=== PATIENT | female | born 1940 | race Caucasian/White ===

== ENCOUNTER → 2016-12-04 | Outpatient (CLI) | payer OTHER, MEDICARE ==
[~2016-12-04] MED LIST: ALBU18002; AMLO-114 PO; ASPI81TA28 PO; B-COTAB18 PO; EFF75 PO; GABA-113 PO; LISI-729 PO; METO50TA16 PO; OMEP40CA PO; PRVC40 PO
[2016-12-04 13:38] LABS: BLOOD UREA NITROGEN 23 mg/dl (7-18); BUN/CREATININE RATIO 23.9 (10-20); CARBON DIOXIDE 30 mmol/L (21-32); CHLORIDE 103 mmol/L (98-107); CREATININE 0.96 mg/dl (0.60-1.20); GLUCOSE 136 mg/dl (70-99); POTASSIUM 4.1 mmol/L (3.5-5.1); SODIUM 139 mmol/L (136-145)
[2016-12-04 13:41] LABS: CALCIUM 9.7 mg/dl (8.5-10.1)
== END | disposition home or self-care (01) ==
LOC: C.LABMFLN 10:48
PROVIDERS: ATTEND Internal Medicine Cardiovascular Disease
DX: I10 Essential (primary) hypertension (principal); I25.10 Atherosclerotic heart disease of native coronary artery without angina pectoris

== ENCOUNTER → 2017-01-05 | Outpatient (CLI) | payer OTHER, MEDICARE ==
[2017-01-05 13:58] LABS: ESTIMATED AVERAGE GLUCOSE 134 mg/dl; HA1C FLAG Normal (Normal)
== END | disposition home or self-care (01) ==
LOC: C.LABMFLN 10:14
PROVIDERS: ATTEND Family Medicine
DX: R73.01 Impaired fasting glucose (principal)

== ENCOUNTER 2020-05-27 09:49 | Inpatient (IN) ==
--- NOTE | 2020-05-06 11:46 | PAT Medication Instructions ---
Medication Instructions Date of Service May 06, 2020 Home Medications Medication Instructions Recorded venlafaxine 75 mg tablet 75 mg PO BID #180 tab 03/04/19 metoprolol tartrate 50 mg tablet 50 mg PO BID #180 tab 09/18/19 gabapentin 400 mg capsule 400 mg PO TID 90 Days #270 cap 04/02/20 nitrofurantoin 100 mg PO BID 7 Days #14 cap 04/19/20 monohydrate/macrocrystals 100 mg capsule venlafaxine 75 mg tablet 75 mg PO BID B-complex with vitamin C 1 cap PO QAM meclizine 25 mg tablet 25 mg PO TID PRN nitroglycerin 0.4 mg sublingual tablet 0.4 mg SL Q5M PRN metoprolol tartrate 50 mg tablet 50 mg PO BID gabapentin 400 mg capsule 400 mg PO TID nitrofurantoin monohydrate/macrocrystals 100 mg capsule 100 mg PO BID amlodipine 2.5 mg PO PM aspirin [Aspir-81] 81 mg PO QAM hydrochlorothiazide 12.5 mg PO PM isosorbide mononitrate 60 mg PO PM lisinopril 40 mg PO PM omeprazole 40 mg PO QAM Continue as directed nitroglycerin 0.4 mg sublingual tablet 0.4 mg SL Q5M PRN (if needed) ASK your prescriber and surgeon aspirin [Aspir-81] 81 mg PO QAM DO NOT take the morning of surgery B-complex with vitamin C 1 cap PO QAM Take morning of surgery With a small sip of water, OTHERWISE NOTHING TO EAT OR DRINK AFTER MIDNIGHT: venlafaxine 75 mg tablet 75 mg PO BID meclizine 25 mg tablet 25 mg PO TID PRN (if needed) metoprolol tartrate 50 mg tablet 50 mg PO BID gabapentin 400 mg capsule 400 mg PO TID nitrofurantoin monohydrate/macrocrystals 100 mg capsule 100 mg PO BID omeprazole 40 mg PO QAM Take evening before surgery venlafaxine 75 mg tablet 75 mg PO BID meclizine 25 mg tablet 25 mg PO TID PRN (if needed) metoprolol tartrate 50 mg tablet 50 mg PO BID gabapentin 400 mg capsule 400 mg PO TID nitrofurantoin monohydrate/macrocrystals 100 mg capsule 100 mg PO BID amlodipine 2.5 mg PO PM hydrochlorothiazide 12.5 mg PO PM isosorbide mononitrate 60 mg PO PM lisinopril 40 mg PO PM Other Notes If you have any questions please call us at [phone] or [phone] or [phone] or [phone]
--- NOTE | 2020-05-07 13:11 | Anesthesiology Consultation ---
Date of Service May 07, 2020 Assessment & Plan (1) Encounter for pre-operative examination: - Awaiting surgeon-ordered PCP clearance (05/13; [facility]) and cardiology clearance (05/17; [facility]). - Per assessment on 05/07: Travel screen negative. No known COVID-19 positive contacts or current COVID-19 related symptoms. Surgeon arranging preop COVID testing. Awaiting results. - Possible difficult intubation: d/t decreased cervical extension. Chart Review Chart Review: Patient seen in Pre Admission Testing Teaching & Discussion Pre-Anesthesia Teaching/Discussion Notes: Instructed NPO after midnight before surgery,except medications with 15 cc of water. Medication instructions provided according to the PAT guidelines. History Surgery Operation Date: 05/27/20 13:10 Proposed Procedures p Left Reverse Total Shoulder Arthroplasty - Devonte José MD Height/Weight Height: 5 ft 0.5 in Weight: 69 kg Allergies Allergy/AdvReac Type Severity Reaction Status Date / Time atorvastatin Allergy Unknown leg Verified 05/07/20 13:05 weakness chlorpheniramine Allergy Unknown Antihistamines Verified 05/07/20 15:28 reaction- "fogginess" diphenhydramine Allergy Unknown Antihistamines Verified 05/07/20 15:28 reaction- "fogginess" fenofibrate Allergy Unknown leg Verified 05/07/20 13:05 weakness loratadine Allergy Unknown Antihistamines Verified 05/07/20 15:28 reaction- "fogginess" Medications Home Medications Medication Instructions Recorded Confirmed Last Taken venlafaxine 75 mg tablet 75 mg PO BID #180 tab 03/04/19 05/06/20 Unknown B-complex with vitamin C 1 cap PO QAM 03/21/19 05/06/20 Unknown meclizine 25 mg tablet 25 mg PO TID PRN #30 tab 03/21/19 05/06/20 Unknown nitroglycerin 0.4 mg sublingual 0.4 mg SL Q5M PRN #25 tab 03/21/19 05/06/20 Unknown tablet metoprolol tartrate 50 mg tablet 50 mg PO BID #180 tab 09/18/19 05/06/20 Unknown gabapentin 400 mg capsule 400 mg PO TID 90 Days #270 cap 04/02/20 05/06/20 Unknown nitrofurantoin 100 mg PO BID 7 Days #14 cap 04/19/20 05/06/20 Unknown monohydrate/macrocrystals 100 mg capsule amlodipine 2.5 mg PO PM 05/06/20 05/06/20 Unknown aspirin [Aspir-81] 81 mg PO QAM 05/06/20 05/06/20 Unknown hydrochlorothiazide 12.5 mg PO PM 05/06/20 05/06/20 Unknown isosorbide mononitrate 60 mg PO PM 05/06/20 05/06/20 Unknown lisinopril 40 mg PO PM 05/06/20 05/06/20 Unknown omeprazole 40 mg PO QAM 05/06/20 05/06/20 Unknown Past Medical History Medical History Anxiety Cowan's esophagus CAD (coronary artery disease) stent x1 (1998), follows with [facility] cardiology Carpal tunnel syndrome left Depression Dyslipidemia Gait abnormality poor balance Gastro-esophageal reflux disease without esophagitis controlled History of ovarian cancer s/p chemo (2003), subsequent oophorectomy Hypertension Kidney stones x3 Lumbar canal stenosis Osteoarthritis Peripheral neuropathy Prediabetes Sleep apnea CPAP Urinary incontinence Exercise / Class Metabolic Activity III < 4 Walking/Shop/Light housework Past Family History Family History Brother Cancer Hypertension Father Cancer Mother Diabetes Coronary heart disease Hypertension Myocardial infarction Sister Stroke Denies family history of Ovarian cancer Prostate cancer Breast cancer Colorectal cancer Past Surgical History Surgical History H/O colonoscopy H/O dilation and curettage History of appendectomy History of bunionectomy left History of carpal tunnel release right History of esophagogastroduodenoscopy (EGD) History of foot surgery left - hammer toes History of tooth extraction Hx of salpingo-oophorectomy, bilateral S/P cardiac cath 1998- stent x 2015- no stents S/P hysterectomy Past Anesthesia History No Hx of Anesthesia Complications and No Family Hx of Anesthesia Complications History of PONV No Hx of PONV and No Hx of Motion Sickness Social History Smoking Status: Never smoker Do You Dip or Chew Tobacco: No Hx Alcohol Use: No Hx Substance Use: No substance use type: does not use Review of Systems Reflux controlled. Patient denies chest pain, shortness of breath, fever, chills, cough, wheezing, palpitations. Physical Exam Vital Signs VITALS BP 144/78 P 56 TEMP 98.1 SP02 97%RA RESP 16 PHYSICAL Decreased cervical extension. Full TMJ range of motion. TMD 3 finger breaths Mallampati Score 1 Dentition: upper front left tooth/molars missing Lungs: clear throughout to auscultation Cardiac: regular rate and rhythm, I/ systolic murmur Spine: normal Carotid arteries: negative bruit Extremities: no edema Testing Laboratory Results 05/07/20 13:55 05/07/20 13:55 PT 10.7 Seconds (9.0-12.0) 05/07/20 13:55 INR 1.0 (0.9-1.1) 05/07/20 13:55 APTT 26.0 Seconds (21.0-31.0) 05/07/20 13:55 Hemoglobin A1c 6.4 % (4.5-5.6) H 05/07/20 13:55 Urine Color Yellow 05/07/20 13:55 Urine Appearance Clear (Clear) 05/07/20 13:55 Urine pH 5.0 (4.5-7.5) 05/07/20 13:55 Ur Specific [place] 1.013 (1.000-1.030) 05/07/20 13:55 Urine Protein Negative (Negative) 05/07/20 13:55 Urine Glucose (UA) Negative (Negative) 05/07/20 13:55 Urine Ketones Negative (Negative) 05/07/20 13:55 Urine Nitrite Negative (Negative) 05/07/20 13:55 Ur Leukocyte Esterase Negative (Negative) 05/07/20 13:55 Blood Type A Positive 05/07/20 13:55 Antibody Screen NEGATIVE 05/07/20 13:55 Electrocardiogram Date: 06/04/19 ST at 101bpm. LAFB. LVH with secondary repolarization abnormality. Chest X-Ray Date: 05/07/20 FINDINGS: Lung volumes are normal. Lungs are clear. There is no pneumothorax or pleural effusion. Cardiac size is normal. Mediastinal contours are normal. There is no evidence for pulmonary edema. Incidental note is made of left upper quadrant surgical clips. IMPRESSION: No acute cardiopulmonary findings Cardiac Catheterization Date: 04/14/16 Moderate mid left circumflex stenosis. Conclusion: FFR of moderate mid left circumflex stenosis not physiologically significant. Plan: Medical management of CAD. Follow up and management of CAD by Dr. Neri Bone.
--- NOTE | 2020-05-07 14:30 | XRay Report ---
XR chest Pre-admission PA/Lat CLINICAL HISTORY: Preoperative evaluation. COMPARISON STUDY: No previous studies for comparison. FINDINGS: Lung volumes are normal. Lungs are clear. There is no pneumothorax or pleural effusion. Car diac size is normal. Mediastinal contours are normal. There is no evidence for pulmonary edema. Incid ental note is made of left upper quadrant surgical clips. IMPRESSION: No acute cardiopulmonary findings. ACT 112: Negative or not required by law. Electronically signed by: Usama Naranjo M.D. 05/07/2020 2:28 PM
[2020-05-07 14:39] LABS: Basophils # (auto) 0.01 K/uL (0-0.2); Basophils % (auto) 0.2 %; Eosinophils # (auto) 0.16 K/uL (0-0.5); Eosinophils % (auto) 3.2 %; Hematocrit (blood only) 39.3 % (37-47); Hemoglobin 12.8 g/dL (12.0-16.0); Immature Granulocytes # (auto) 0.01 K/uL (0.00-0.02); Immature Granulocytes % (auto) 0.2 %; Lymphocytes # (auto) 1.76 K/uL (1.2-3.4); Lymphocytes % (auto) 34.7 %; Mean Corpuscular Hemoglobin 30.8 pg (25-34); Mean Corpuscular Hgb Conc 32.6 g/dL (32-36); Mean Corpuscular Volume 94.7 fL (80-100); Monocytes # (auto) 0.38 K/uL (0.11-0.59); Monocytes % (auto) 7.5 %; Neutrophils # (auto) 2.75 K/uL (1.4-6.5); Neutrophils % (auto) 54.2 %; Platelet Count 278 K/uL (130-400); Red Blood Count 4.15 M/uL (4.2-5.4); White Blood Count 5.07 K/uL (4.8-10.8)
[2020-05-07 14:43] LABS: Appearance Urine Clear (Clear); Bilirubin Urine Negative (Negative); Blood Urine Negative (Negative); Color Urine Yellow; Glucose Urine UA Negative (Negative); Ketones Urine Negative (Negative); Leukocyte Esterase Urine Negative (Negative); Nitrite Urine Negative (Negative); Protein Urine Negative (Negative); Specific Gravity Urine 1.013 (1.000-1.030); Urobilinogen Urine Negative (Negative)
[2020-05-07 14:51] LABS: Partial Thromboplastin Ratio 0.9; Prothrombin Time 10.7 Seconds (9.0-12.0)
[2020-05-07 15:44] LABS: Albumin Level 3.4 gm/dl (3.4-5.0); BUN Creatinine Ratio 21.2 (10-20); Creatinine Clr Calc Pharmacy 36.5 ml/min; Est GFR (African American) 56.1; Est GFR (Non-African American) 48.4; Potassium 3.9 mmol/L (3.5-5.1)
[2020-05-08 05:50] LABS: Estimated Average Glucose 137 mg/dl; Hemoglobin A1C 6.4 % (4.5-5.6)
--- NOTE | 2020-05-26 15:38 | History and Physical Report ---
DATE OF ADMISSION: 05/27/2020 CHIEF COMPLAINT: Chronic left shoulder pain. HISTORY OF PRESENT ILLNESS: This is an 79-year-old female patient of Dr. José, complaining of chronic shoulder pain for months now. There was a questionable swelling injury in the recent past, but nonetheless she has had chronic shoulder pain and weakness, that has failed conservative treatment. An MRI has confirmed a rotator cuff tear that is irreparable. The patient wished to proceed with a left reverse total shoulder arthroplasty. PAST MEDICAL HISTORY: Angina, hypertension, hypercholesterolemia, sleep apnea with the use of CPAP, peripheral neuropathy, osteoarthritis, acid reflux, obesity, history of ovarian cancer. SOCIAL HISTORY: Nonsmoker and nondrinker. PAST SURGICAL HISTORY: D and C, hysterectomy, and left foot surgery x2. FAMILY HISTORY: Noncontributory. REVIEW OF SYSTEMS: Chronic left shoulder pain and weakness. Otherwise, denies any shortness of breath, chest pain, nausea, vomiting or other joint complaints. MEDICATIONS: 1. Lisinopril 40 mg daily. 2. Omeprazole 40 mg daily. 3. Aspirin 81 mg daily. 4. Venlafaxine 75 mg twice daily. 5. Gabapentin 400 mg 3 times daily. 6. Metoprolol 50 mg twice daily. 7. Isosorbide mononitrate 60 mg daily. 8. Nitroglycerin 0.4 mg sublingual tablets as needed. 9. Amlodipine 2.5 mg daily. 10. Vitamin B supplement daily. ALLERGIES: LIPITOR AND TRICOR. PHYSICAL EXAMINATION: GENERAL: Well-developed, well-nourished 79-year-old female in no acute distress. She is alert and oriented x3 and pleasant. HEENT: Normocephalic, atraumatic. Extraocular motions are intact. Pupils are equal and reactive to light. HEART: Regular rate and rhythm, no murmurs. LUNGS: Clear. ABDOMEN: Soft, nontender, bowel sounds present. EXTREMITIES: Left shoulder active range of motion of 0-30, passive range of motion is full with pain and crepitation. External rotation strength is 2/5, internal rotation 4/5 all with crepitation and pain. Neurologically and neurovascularly, she is intact in her left upper extremity. DIAGNOSES: Left shoulder chronic rotator cuff arthropathy, angina, hypertension, hypercholesterolemia, sleep apnea with use of CPAP, peripheral neuropathy, osteoarthritis, acid reflux, obesity, history of uterine cancer and kidney stones. PLAN: The patient was advised of her diagnosis. Indications, risks, benefits, postop course have all been reviewed. The patient wished to proceed with a left reverse total shoulder arthroplasty. Necessary consent forms, preoperative testing and clearances will be obtained.
[~2020-05-27 09:49] MED LIST changes: -ALBU18002; -AMLO-114 PO; -ASPI81TA28 PO; -B-COTAB18 PO; -EFF75 PO; -GABA-113 PO; -LISI-729 PO; +LR 15ML/HR IV SCH; -METO50TA16 PO; -OMEP40CA PO; -PRVC40 PO; +ROPIVACAINE 0.5% 5 MG/ML 30 ML VIAL ONE
[2020-05-27] MEDS ORDERED: MIDAZOLAM HCL 1 MG/ML 2ML VIAL ONE (10:02)
[2020-05-27] MEDS ORDERED: fentaNYL citrate 100 MCG/2 ML VIAL ONE (10:02)
[2020-05-27] MEDS ORDERED: CeleBREX 200 MG CAP ONE (10:05)
[2020-05-27] MEDS ORDERED: ACETAMINOPHEN 500 MG TAB ONE (10:05)
[2020-05-27] MEDS ORDERED: dexAMETHasone 4 MG TAB PO ONE (10:06)
[2020-05-27] MEDS ORDERED: GABAPENTIN 300 MG CAP ONE (10:07)
[2020-05-27] MEDS ORDERED: FAMOTIDINE 20 MG TAB ONE (10:07)
[2020-05-27] MEDS ORDERED: METOCLOPRAMIDE HCL 10 MG TABLET ONE (10:07)
[2020-05-27] MEDS ORDERED: HYDROmorphone INJ 1 MG/ML SYRINGE IV PRN (10:15)
[2020-05-27] MEDS ORDERED: ePHEDrine sulfate 50 MG/ML AMP IV PRN (10:15)
[2020-05-27] MEDS ORDERED: ONDANSETRON INJ 2 MG/ML 2 ML VIAL IV PRN ×2 (10:15→15:04)
[2020-05-27] MEDS ORDERED: ATROPINE SULFATE 0.1 MG/ML 10ML SYR IV PRN (10:15)
[2020-05-27] MEDS ORDERED: fentaNYL citrate 100 MCG/2 ML VIAL IV PRN (10:15)
[2020-05-27] MEDS ORDERED: BACITRACIN INJ 50,000 UNIT VIAL ONE (10:50)
--- NOTE | 2020-05-27 10:57 | History & Physical Bridge Note ---
Date of Service May 27, 2020 History & Physical Bridge Note I have examined the patient, reviewed the History & Physical and in the interval since the performance of the History & Physical I have noted the following changes of clinical significance: Superficial scratches on right hand and left leg from a cat bite no drainage no erythema no signs of infection on any of the wounds and none of them are on the operative site area.
[2020-05-27] MEDS ORDERED: PROPOFOL IV EMULSION 10 MG/ML 20 ML VIAL IV ONE (11:13)
[2020-05-27] MEDS ORDERED: ROCURONIUM BROMIDE 10 MG/ML 5 ML VIAL IV ONE ×3 (11:13)
[2020-05-27] MEDS ORDERED: PHENYLEPHRINE HCL 10 MG/ML VIAL ONE (12:20)
[2020-05-27] MEDS ORDERED: ePHEDrine sulfate 50 MG/ML AMP ONE (12:20)
[2020-05-27] MEDS ORDERED: LIDOCAINE HCL 2% 2 ML VIAL/AMP(20MG/ML) INFIL ONE (13:32)
[2020-05-27] MEDS ORDERED: NEOSTIGMINE METHYLSULFATE 5 MG/5 ML SYR ONE (13:32)
[2020-05-27] MEDS ORDERED: GLYCOPYRROLATE 0.2 MG/ML VIAL ONE (13:32)
--- NOTE | 2020-05-27 13:46 | Post Operative Brief Note ---
Immediate Post Op Note v1 Date of Surgery May 27, 2020 Pre & Post Diagnosis Operation Date: 05/27/20 12:00 Pre-Op Diagnosis: Left Shoulder Rotator Cuff Arthropathy, irreparable rotator cuff tear Post-Op Diagnosis: Left Shoulder Rotator Cuff Arthropathy, irreparable rotator cuff tear, biceps tendinopathy I identified the patient and participated in the time-out.: Yes Procedure Operation Date: 05/27/20 12:00 Actual Procedures p Left Reverse Total Shoulder Arthroplasty, Biceps Tenodesis(Left) - Devonte José MD Surgeon Devonte José MD Lens Polisher Elias SESAY Estimated Blood Loss 75 Findings Consistent with Post-Op Diagnosis Specimens Humeral head Drains Hemovac Drain Anesthesia Type General Regional Complications none Disposition Accompanied Patient To Recovery: No Disposition: Recovery Room Overlapping Procedure I was present for: the critical portions of procedure. Back up surgeon: was not required during procedure.
--- NOTE | 2020-05-27 13:55 | Operative Report ---
Post Operative Report Pre & Post Diagnosis Operation Date: 05/27/20 12:00 Pre-Op Diagnosis: Left Shoulder Rotator Cuff Arthropathy, irreparable rotator cuff tear Post-Op Diagnosis: Left Shoulder Rotator Cuff Arthropathy, reparable rotator cuff tear, biceps tendinopathy I identified the patient and participated in the time-out.: Yes Procedure Operation Date: 05/27/20 12:00 Actual Procedures p Left Reverse Total Shoulder Arthroplasty, Biceps Tenodesis(Left) - Devonte José MD Surgeon Devonte José MD Carding Supervisor Elias SESAY Estimated Blood Loss 75 Findings Consistent with Post-Op Diagnosis Specimens Humeral head Drains Hemovac Anesthesia Type General Regional Complications none Disposition Accompanied Patient To Recovery: No Disposition: Recovery Room Indications 79-year-old female chronic left shoulder pain failed conservative management. Patient has a pseudoparalytic left shoulder and can only raise it 30 degrees from the side. Patient has chronic pain and weakness.. Description of Procedure The patient was taken to the operating room and anesthetized under regional block and general anesthetic. The patient was positioned on the operating table in a 30 beach chair position with a towel roll under the medial border of the left scapula. The arm was draped free to be able to manipulate the shoulder as needed. The left upper extremity was prepped and draped in usual sterile fashion. Exam demonstrated passive forward flexion to 120 degrees, passive abduction to 70 degrees, passive external rotation to 30 degrees.. An anterior deltopectoral approach was performed. A longitudinal incision was made in the deltopectoral interval. The skin was incised sharply. Subcutaneous flaps were elevated off the fascia. The cephalic vein was dissected out and retracted lateral with the deltoid. The clavipectoral fascia was divided at the lateral margin of the conjoined tendon and extended up to the CA ligament. The following findings were noted: There is a large retracted rotator cuff tear involving the supraspinatus and infraspinatus with teres minor intact and a strand of supraspinatus still intact at the rotator interval area. The biceps tendon was exposed and markedly widened which appeared to be chronic widening over time. There was biceps tendinopathy extending through the bicipital groove.. The upper centimeter of the pectoralis was released for inferior exposure. the biceps tendon was tenodesed to the pectoralis tendon with #2 FiberWire. The proximal biceps was resected. The subscapularis tendon was taken down off the lesser tuberosity using a subperiosteal dissection. A #1 Vicryl traction suture was placed into the free end of the subscapularis tendon and capsule. The subscapular muscle fibers were split longitudinally at the level of the circumflex vessels. The circumflex vessels were identified and tied off with silk ties and divided laterally. A Kitner elevator was used to free up the inferior fibers of the subscapularis off of the capsule. The axillary nerve was identified with a tug test and protected with a blunt Alek retractor between the nerve and the capsule. The subscapularis tendon was then taken down off of the lesser tuberosity subperiosteally and subperiosteal dissection was performed along the neck of the humerus as the arm is gradually externally rotated exposing the humeral head. 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 No exposed bone. No i nferior osteophytes. A Hyman elevator was used to assist in releasing the capsule of the neck of the humerus. The capsule was divided with Rodriguez scissors down to the glenoid released off the anterior glenoid and the rotator interval was released to meet the capsular release and a 360 release of the subscapularis was accomplished. A Fukuda retractor was placed into the joint retracting the humeral head posterior. Glenoid findings demonstrated grade II- III chondromalacia no exposed bone. The labrum and biceps tendon was resected. an anterior-inferior and posterior inferior capsular release were performed with electrocautery and a Hyman elevator on bone with the axillary nerve protected inferiorly by the retractor. Attention was then taken to the humeral preparation. The cutting guide was placed into the humeral head. It was positioned at 20 of retroversion. Oscillating saw was used to resect the humeral head giving the cut above the level of the posterior rotator cuff insertion site. The humerus was then prepared for the stem. I used the ascend flex stem from [employer]. The sizing broaches were used followed by trial broaches up to a size 3B long which had the appropriate fit and fill. The appropriate sized cut protector was placed. The humerus was then retracted posterior to the glenoid. The glenoid was sized for a 25 baseplate. The guide for the baseplate was positioned in a 10 inferior tilt and the central drill hole was made. The reamer for the 25 baseplate was used. The central drill was widened for the peg. The Tornier aequalis hydroxyapatite-coated baseplate was impacted into position. The base plate was transfixed with superior and inferior locking screws and anterior and posterior compression screws with stable fixation. The fan reamer was used for the 36 millimeter glenoid sphere. After irrigation the 36 mm standard glenoid sphere was impacted onto the baseplate and the screw was tightened. Attention was taken back to the humerus. The cut protector was removed and the +0 high offset humeral tray trial was assembled to the trial stem rotated appropriately to get bony coverage and then screwed in position. A trial reduction was performed. A +6/36 trial insert demonstrated good stability and no shuck. The trials were removed. 3 drill holes are made into the harder bone in the bicipital groove area and 3 #5 FiberWire sutures were placed transosseously. The canal was irrigated with antibiotic solution with bacitracin. The final component was assembled. The final component was 3B long ascend flex PTC stem assembled to place a high offset humeral tray similar to 36/+6 reversed polyethylene humeral insert. This was then impacted into the humerus with a tight press-fit. It was reduced to the glenoid sphere. Stability was verified. Subscapularis was repaired with the #5 FiberWire sutures using Colin-Errol suture technique. Lateral row soft tissue repair was performed with #2 FiberWire [id number] sutures. The pectoralis was repaired with #2 FiberWire [id number] sutures reinforcing the biceps tendon tenodesis. The arm was taken through a range of motion which demonstrated 140 degrees passive range of motion 90 degrees abduction external rotation 45 degrees. The implant was stable through the range of motion tested. The wound was copiously irrigated. 2 Hemovac drains were placed. The deltope ctoral interval was closed with [id number] #1 Vicryl sutures. The subcutaneous tissues were closed with 2-0 Vicryl sutures. The skin was closed with harvey. Sterile dressings were applied and a shoulder immobilizer. Elias SESAY my physician perioperative assistant assisted in the procedure to the entire procedure including patient positioning arm positioning prepping and draping soft tissue retraction instrument management suture management and performed the subcutaneous and skin closure and will participate in the postoperative care of the patient. I attest to the content of the Intraoperative Record and any orders documented therein. Any exceptions are noted below.
--- NOTE | 2020-05-27 14:51 | XRay Report ---
XR shoulder LT min 2V routine HISTORY: 79 years-old Female Post shoulder surgery left shoulder total joint arthroplasty COMPARISON: None TECHNIQUE: 2 views of the left shoulder FINDINGS: Reverse left shoulder total joint arthroplasty. Satisfactory alignment without acute fracture or unex pected retained foreign body. Overlying skin harvey are noted along with expected postsurgical soft tissue swelling and deep tissue air with surgical drainage catheter. Surgical clips project over the abdominal left upper quadrant. IMPRESSION: Reverse left shoulder total joint arthroplasty with expected postoperative changes. ACT 112: Negative or not required by law. The above report was generated using voice recognition software. It may contain grammatical, syntax o r spelling errors. Electronically signed by: Jt Benson M.D. 05/27/2020 2:50 PM
[2020-05-27] MEDS ORDERED: MAGNESIUM HYDROXIDE SUSP 30 ML UDC PO PRN (15:04)
[2020-05-27] MEDS ORDERED: HYDROmorphone INJ 0.5 MG/0.5 ML SYR IV PRN (15:04)
[2020-05-27] MEDS ORDERED: diphenhydrAMINE Capsule 25 MG CAP PO PRN (15:04)
[2020-05-27] MEDS ORDERED: NITROGLYCERIN SL 0.4 MG/TAB TAB SL PRN (15:04)
[2020-05-27] MEDS ORDERED: NALOXONE HCL 0.4 MG/1 ML VIAL/CARP IV PRN (15:04)
[2020-05-27] MEDS ORDERED: bisacodyL 10 MG SUPP PR PRN (15:04)
[2020-05-27] MEDS: SODIUM CHLORIDE 0.9% 1000ML 1,000 ML IV SCH ×2 (15:11→23:41)
--- NOTE | 2020-05-27 15:14 | Anesthesiology Progress Note ---
Date of Service May 27, 2020 Anesthesia Post Procedure Vital Signs Vital Signs: Temp Pulse Pulse Resp BP Pulse Ox 05/27/20 14:40 36.8 C 79 15 121/60 93 05/27/20 14:30 75 15 130/58 L 97 05/27/20 14:20 75 15 131/63 97 05/27/20 14:10 68 12 140/59 L 97 05/27/20 14:00 71 20 159/78 H 94 05/27/20 13:53 36.1 C L 75 17 169/75 H 97 05/27/20 11:15 66 18 136/71 97 05/27/20 10:36 37.2 C 74 20 119/65 98 Pain Intensity Left Shoulder: Pain Intensity: 0 Transfer of Care Handoff Completed per policy Notes Mental Status: alert / awake / arousable and participated in evaluation Patient Amnestic to Procedure: Yes Nausea / Vomiting: adequately controlled Pain: adequately controlled Airway Patency, RR, SpO2: stable & adequate BP & HR: stable & adequate Hydration State: stable & adequate Anesthetic Complications: no major complications apparent and Pt Satisfied with anesthetic care
[2020-05-27] MEDS ORDERED: MECLIZINE HCL 25 MG TAB PO PRN (15:20)
[2020-05-27] MEDS: GABAPENTIN 400 MG CAP PO SCH ×2 (16:09→20:19)
[2020-05-27] MEDS: ACETAMINOPHEN 500 MG TAB PO SCH ×2 (16:10→22:09)
[2020-05-27] MEDS: ceFAZolin 1000MG 1,000 MG/7.5 ML SYR IV SCH (17:05)
[2020-05-27] MEDS: DOCUSATE SODIUM 100 MG CAP PO SCH (20:19)
[2020-05-27] MEDS: SENNA 8.6 MG TAB PO SCH (20:19)
[2020-05-27] MEDS: lisinopril 40 MG TAB PO SCH (20:19)
[2020-05-27] MEDS: ISOSORBIDE MONO EXTENDED REL 60 MG TABCR PO SCH (20:20)
[2020-05-27] MEDS: hydroCHLOROthiazide 25 MG TAB PO SCH (20:20)
[2020-05-27] MEDS: amLODIPine BESYLATE 5 MG TAB PO SCH (20:21)
[2020-05-27] MEDS: METOPROLOL TARTRATE 50 MG TAB PO SCH (20:26)
[2020-05-27] MEDS ORDERED: VENLAFAXINE HCL 75 MG TAB PO SCH ×2 (21:00→22:00)
[2020-05-27] MEDS: VENLAFAXINE HCL 37.5 MG TAB PO SCH (22:09)
[2020-05-28] MEDS: MISSING PHYSICIAN SIGNATURE ON ORDER SCH ×3 (00:32→16:26)
[2020-05-28] MEDS: ceFAZolin 1000MG 1,000 MG/7.5 ML SYR IV SCH (02:31)
[2020-05-28] MEDS: ACETAMINOPHEN 500 MG TAB PO SCH ×3 (05:11→21:04)
--- NOTE | 2020-05-28 07:55 | Orthopedic Progress Note ---
Date of Service May 28, 2020 Assessment & Plan (1) Rotator cuff arthropathy: POD #1, Left reverse TSA, biceps tenodesis Limited PT/ OT DVT proph- ASA D/C planning- Home w HEP. Will monitor pain today. Admission and Anticipated Discharge Date Admission Date: May 27, 2020 Subjective POD #1, Feeling well. Denies SOB, CP, N/V, Dizziness. States pain is starting to get worse, likely due to nerve block wearing off. Physical Exam Physical Exam: Left shoulder dressings c/d/i, no drainage. Fingers mobile. Sling in tact. A&Ox3. Results & Data ([facility]) Vital Signs (Past 12 Hours) Vital Signs Temp Pulse Resp BP Pulse Ox 05/28/20 07:47 37.0 C 71 18 112/58 L 92 05/28/20 02:51 36.9 C 67 14 92/51 L 93 05/28/20 00:15 37.0 C 78 18 114/57 L 92 05/27/20 20:01 37.1 C 89 16 104/57 L 94
[2020-05-28] MEDS: OMEPRAZOLE 20 MG CAPCR PO SCH (08:56)
[2020-05-28] MEDS: METOPROLOL TARTRATE 50 MG TAB PO SCH ×2 (08:56→21:05)
[2020-05-28] MEDS: VITAMIN B COMPLEX TAB PO SCH (08:56)
[2020-05-28] MEDS: VENLAFAXINE HCL 37.5 MG TAB PO SCH ×2 (08:56→21:04)
[2020-05-28] MEDS: MULTIVITAMIN TAB PO SCH (08:56)
[2020-05-28] MEDS: DOCUSATE SODIUM 100 MG CAP PO SCH ×2 (08:56→21:05)
[2020-05-28] MEDS: GABAPENTIN 400 MG CAP PO SCH ×3 (08:57→21:04)
[2020-05-28] MEDS: ASCORBIC ACID 500 MG TAB PO SCH (08:57)
[2020-05-28] MEDS: ASPIRIN 81 MG ECTAB PO SCH (08:57)
[2020-05-28] MEDS: oxyCODONE HCL IR 5 MG TAB (IMMEDIATE RELEASE) PO PRN ×2 (09:00→12:04)
[2020-05-28] MEDS ORDERED: B COMPLEX WITH VITAMIN C PO SCH (09:00)
[2020-05-28 09:02] LABS: Basophils # (auto) 0.01 K/uL (0-0.2); Basophils % (auto) 0.1 %; Eosinophils # (auto) 0.01 K/uL (0-0.5); Eosinophils % (auto) 0.1 %; Hematocrit (blood only) 32.3 % (37-47); Hemoglobin 10.3 g/dL (12.0-16.0); Immature Granulocytes # (auto) 0.02 K/uL (0.00-0.02); Immature Granulocytes % (auto) 0.2 %; Lymphocytes # (auto) 1.16 K/uL (1.2-3.4); Lymphocytes % (auto) 10.9 %; Mean Corpuscular Hemoglobin 30.2 pg (25-34); Mean Corpuscular Hgb Conc 31.9 g/dL (32-36); Mean Corpuscular Volume 94.7 fL (80-100); Mean Platelet Volume 10.3 fL (7.4-10.4); Monocytes # (auto) 1.01 K/uL (0.11-0.59); Monocytes % (auto) 9.5 %; Neutrophils # (auto) 8.45 K/uL (1.4-6.5); Neutrophils % (auto) 79.2 %; Platelet Count 247 K/uL (130-400); RDW Coefficient of Variation 13.1 % (11.5-14.5); RDW Standard Deviation 45.5 fL (36.4-46.3); Red Blood Count 3.41 M/uL (4.2-5.4); White Blood Count 10.66 K/uL (4.8-10.8)
--- NOTE | 2020-05-28 09:23 | Hospitalist Consultation ---
Date of Consultation May 28, 2020 Assessment & Plan (1) Rotator cuff arthropathy: * POD#1 s/p LEFT reverse TSA with Dr. José. EBL 75cc. Pre-op h/h 12.8/39.3. Hemovac with 255cc output * PT/OT/pain management/DVT prophylaxis per primary service * h/h 10.3/32.3 -- acute blood loss from surgery and dilution from IVF * CBC in AM (2) CAD (coronary artery disease): * s/p bare metal stent 1997 to LCx. Cardiac clearance by Yoshi Montgomery prior to procedure * Continue ASA 81mg, metoprolol, lisinopril, isosorbide, * Not on statin therapy -- reported allergy to atorvastatin "leg weakness" and stated issues with Crestor as well (3) Hypertension: * BP stable, 112/58 * Continue lisinopril 40mg, metoprolol taetrate 50mg BID, HCTZ 12.5mg, amlodipine 2.5mg * Continue to monitor (4) Prediabetes: * A1c 6.4 from 6.5 prior * BSG AC/HS -- did have drop to 68 overnight. will hold off on insulin and continue to monitor (5) History of ovarian cancer: * s/p chemotherapy 2003. subsequent hysterectomy/oophorectomy * Follows with Dr. Martin from Oncology in [place] (6) Depression: * Continue venlafaxine 75mg daily (7) Gastro-esophageal reflux disease without esophagitis: * Controlled. Hx Cowan's. Followed with Dr. Hernandez and gets routine EGDs * Continue omeprazole 40mg daily (8) Obstructive sleep apnea: * Did not bring CPAP from home -- will order one for tonight (9) DVT prophylaxis: * ASA per primary service Thank you for allowing hospitalist team to participate in the care of Ms. Min. Hospitalist service will follow along. Supervising Physician Co-Signing Physician Notes PA Supervision Note: I personally saw and examined the patient. I verified all beck points and agree with LÁZARO James with the following exceptions and/or additions: Patient doing very well postoperatively. Denies chest pain or shortness of breath. Pain is controlled the shoulder. Denies nausea or abdominal pain. She has not moved her bowels since admission. She is making plenty of urine. History and ROS reviewed as above Vitals reviewed Gen: AAOx3, NAD HEENT: Anicteric sclerae, EOMI CV: RRR no mgr nl S1S2 Pulm: Mild crackles at the base that clear with deep inspiration Abd: +BS soft NT ND no masses or hernias Ext: LUE in sling Skin: No rashes, warm/dry Neuro: Full strength throughout except left upper extremity not tested Laboratory values reviewed 79-year-old female here with left total shoulder arthroplasty with history as above Doing very well Continue with plan as outlined above Follow CBC and BMP in the morning Hospitalist service will follow along History of Present Illness Reason for Consultation: post-op management Requesting Physician: Dr José Attending Physician: Devonte José MD History of Present Illness 79 year old female with PMHx CAD (s/p LCx base metal stent 1997), HTN, HLD, TANISHA (on CPAP), Cowan's, GERD, ovarian ca (s/p chemotherapy/hyster/oophorectomy) presented for LEFT reverse total shoulder arthroplasty with Dr. José. Patient doing well post-operatively. Did have some pain this morning, rated 5/10 to left shoulder, improved to 2/10 with pain medications. Some numbness/tingling, but not able to isolate. 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 Eating/drinking without difficulty. Passing gas but no BM since Wednesday. She does endorse issues with this at home. No abdominal pain, nausea, vomiting, fever, chills, chest pain, shortness of breath, cough, dysuria at this time. Plans on outpatient physical therapy closer to home in [place]. Utilizes CPAP at night but unsure of settings. Did not bring from home as she was having difficulty disconnecting the tubing. Will order for overnight. Plans to continue monitoring overnight for drainage from Hemovac and to monitor pain control. Allergies Allergy/AdvReac Type Severity Reaction Status Date / Time atorvastatin Allergy Unknown leg Verified 05/27/20 10:23 weakness chlorpheniramine Allergy Unknown Antihistamines Verified 05/27/20 10:23 reaction- "fogginess" diphenhydramine Allergy Unknown Antihistamines Verified 05/27/20 10:23 reaction- "fogginess" fenofibrate Allergy Unknown leg Verified 05/27/20 10:23 weakness loratadine Allergy Unknown Antihistamines Verified 05/27/20 10:23 reaction- "fogginess" Home Medications Home Medications Medication Instructions Recorded Confirmed Type B-complex with vitamin C 1 cap PO QAM 03/21/19 05/27/20 History meclizine 25 mg tablet 25 mg PO TID PRN #30 tab 03/21/19 05/27/20 History nitroglycerin 0.4 mg sublingual 0.4 mg SL Q5M PRN #25 tab 03/21/19 05/27/20 History tablet metoprolol tartrate 50 mg tablet 50 mg PO BID #180 tab 09/18/19 05/27/20 Rx gabapentin 400 mg capsule 400 mg PO TID 90 Days #270 cap 04/02/20 05/27/20 Rx amlodipine 2.5 mg PO PM 05/06/20 05/27/20 History aspirin [Aspir-81] 81 mg PO QAM 05/06/20 05/27/20 History hydrochlorothiazide 12.5 mg PO PM 05/06/20 05/27/20 History isosorbide mononitrate 60 mg PO PM 05/06/20 05/27/20 History lisinopril 40 mg PO PM 05/06/20 05/27/20 History omeprazole 40 mg PO QAM 05/06/20 05/27/20 History venlafaxine 75 mg tablet 75 mg PO BID #180 tab 05/09/20 05/27/20 Rx Patient History Medical History Anxiety Cowan's esophagus CAD (coronary artery disease) stent x1 (1998), follows with [facility] cardiology Carpal tunnel syndrome left Depression Dyslipidemia Gait abnormality poor balance Gastro-esophageal reflux disease without esophagitis controlled History of ovarian cancer s/p chemo (2003), subsequent oophorectomy Hypertension Kidney stones x3 Lumbar canal stenosis Osteoarthritis Peripheral neuropathy Prediabetes Sleep apnea CPAP Urinary incontinence Surgical History H/O colonoscopy H/O dilation and curettage History of appendectomy History of bunionectomy left History of carpal tunnel release right History of esophagogastroduodenoscopy (EGD) History of foot surgery left - hammer toes History of tooth extraction Hx of salpingo-oophorectomy, bilateral S/P cardiac cath 1998- stent x 1, 2016- no stents S/P hysterectomy Family History Brother Cancer Hypertension Father Cancer Mother Diabetes Coronary heart disease Hypertension Myocardial infarction Sister Stroke Denies family history of Ovarian cancer Prostate cancer Breast cancer Colorectal cancer Social History Smoking Status: Never smoker Second Hand Exposure: Yes; Do You Dip or Chew Tobacco: No; Tobacco Cessation Education Requested by Patient: No Hx Alcohol Use: No Hx Substance Use: No Preferred Language: Greek Communication Ability: Effective Visual Impairment: Partially Limited Hearing Ability: Normal Director Of Epidemiology Required: No Beliefs That Will Affect Care: None marital status: Current Living Situation: Spouse current occupational status: retired Other Information That Helps Us Care for You: No Feels Safe at Home: Yes Safety Concerns: Feels Safe At This Time Childhood Exposure to Second-Hand Smoke: Yes Dental Care, Regularly: Yes Physical Activity Frequency: Daily Physical Activity Frequency Comment: does use a cane/ does abdomen&wrist& back exercises Seatbelt Use: always Sunscreen Use: Yes Do you think of yourself as: straight/heterosexual Assistive Devices: Glasses Assistive Devices Comment: PARTIAL TO TOP Review of Systems Review of Systems: All systems reviewed & are unremarkable except as noted in HPI & below Physical Exam Constitutional: WD/WN, vitals as above no acute distress Eyes: + anicteric sclerae and PERRL ENMT: mmm Neck: normal visual inspection and trachea midline Respiratory: normal respiratory effort, lungs clear to auscultation Cardiovascular: RRR, no murmur, no edema Gastrointestinal (Abdomen): normal bowel sounds, soft, nontender, no hepatosplenomegaly Musculoskeletal: sling to LEFT arm NVI 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 strength equal 2+ radial pulses bilaterally Hemovac with bloody drainage Skin: warm, dry Neurologic: patellar DTR's 2+ bilat, sensation intact and PERRL, EOMI, accommo dation nl, no face palsy, no dysarthria Psychiatric: A+Ox3, euthymic affect Lymphatic: no cervical or axillary lymphadenopathy Results & Data Results & Data ([facility]) Vital Signs (Past 12 Hours) Vital Signs Temp Pulse Resp BP Pulse Ox 05/28/20 07:47 37.0 C 71 18 112/58 L 92 05/28/20 02:51 36.9 C 67 14 92/51 L 93 05/28/20 00:15 37.0 C 78 18 114/57 L 92 Laboratory Results 05/28/20 05/28/20 05/27/20 Range/Units 08:36 08:36 14:02 WBC 10.66 (4.8-10.8) K/uL RBC 3.41 L (4.2-5.4) M/uL Hgb 10.3 L (12.0-16.0) g/dL Hct 32.3 L (37-47) % MCV 94.7 (80-100) fL MCH 30.2 (25-34) pg MCHC 31.9 L (32-36) g/dL RDW Std Deviation 45.5 (36.4-46.3) fL RDW Coeff of Elieser 13.1 (11.5-14.5) % Plt Count 247 (130-400) K/uL MPV 10.3 (7.4-10.4) fL Immature Gran % (Auto) 0.2 % Neut % (Auto) 79.2 % Lymph % (Auto) 10.9 % [place] % (Auto) 9.5 % Eos % (Auto) 0.1 % Baso % (Auto) 0.1 % Neut # (Auto) 8.45 H (1.4-6.5) K/uL Lymph # (Auto) 1.16 L (1.2-3.4) K/uL [place] # (Auto) 1.01 H (0.11-0.59) K/uL Eos # (Auto) 0.01 (0-0.5) K/uL Baso # (Auto) 0.01 (0-0.2) K/uL Immature Gran # (Auto) 0.02 (0.00-0.02) K/uL Sodium 139 (136-145) mmol/L Potassium 4.1 (3.5-5.1) mmol/L Chloride 106 (98-107) mmol/L Carbon Dioxide 28 (21-32) mmol/L Anion Gap 5.0 (3-11) BUN 25 H (7-18) mg/dl Creatinine 1.08 (0.6-1.2) mg/dl Est Cr Clr Drug Dosing 36.0 ml/min Est GFR ( Amer) 56.1 Est GFR (Non-Af Amer) 48.4 BUN/Creatinine Ratio 22.8 H (10-20) Glucose 102 H (70-99) mg/dl POC Glucose 92 (70-99) mg/dl Calcium 8.9 (8.5-10.1) mg/dl 05/27/20 Range/Units 13:58 WBC (4.8-10.8) K/uL RBC (4.2-5.4) M/uL Hgb (12.0-16.0) g/dL Hct (37-47) % MCV (80-100) fL MCH (25-34) pg MCHC (32-36) g/dL RDW Std Deviation (36.4-46.3) fL RDW Coeff of Elieser (11.5-14.5) % Plt Count (130-400) K/uL MPV (7.4-10.4) fL Immature Gran % (Auto) % Neut % (Auto) % Lymph % (Auto) % [place] % (Auto) % Eos % (Auto) % Baso % (Auto) % Neut # (Auto) (1.4-6.5) K/uL Lymph # (Auto) (1.2-3.4) K/uL [place] # (Auto) (0.11-0.59) K/uL Eos # (Auto) (0-0.5) K/uL Baso # (Auto) (0-0.2) K/uL Immature Gran # (Auto) (0.00-0.02) K/uL Sodium (136-145) mmol/L Potassium (3.5-5.1) mmol/L Chloride (98-107) mmol/L Carbon Dioxide (21-32) mmol/L Anion Gap (3-11) BUN (7-18) mg/dl Creatinine (0.6-1.2) mg/dl Est Cr Clr Drug Dosing ml/min Est GFR ( Amer) Est GFR (Non-Af Amer) BUN/Creatinine Ratio (10-20) Glucose (70-99) mg/dl POC Glucose 68 L* (70-99) mg/dl Calcium (8.5-10.1) mg/dl PG Care Time/CCT Total # of Minutes Spent Total Time Spent with Patient: Total time spent is greater than 50% in coordination of care (as documented) at patient's floor/unit and/or counseling patient: Coding Level of Care Code 27782 Inpt Consult Level 3 Diagnoses Rotator cuff arthropathy M12.819 CAD (coronary artery disease) I25.10 Hypertension I10 Prediabetes R73.03 History of ovarian cancer Z85.43 Depression F32.9 Gastro-esophageal reflux disease without esophagitis K21.9 Obstructive sleep apnea G47.33 DVT prophylaxis Z29.9
[2020-05-28 09:29] LABS: BUN Creatinine Ratio 22.8 (10-20); Calcium 8.9 mg/dl (8.5-10.1); Est GFR (African American) 56.1; Est GFR (Non-African American) 48.4; Potassium 4.1 mmol/L (3.5-5.1)
[2020-05-28] MEDS: POLYETHYLENE (MIRALAX) 17 GM PACK PO SCH (12:08)
--- NOTE | 2020-05-28 12:54 | Anesthesiology Progress Note ---
Date of Service May 28, 2020 Anesthesia Post Procedure Vital Signs Vital Signs: Temp Pulse Pulse Resp BP Pulse Ox 05/28/20 07:47 37.0 C 71 18 112/58 L 92 05/28/20 02:51 36.9 C 67 14 92/51 L 93 05/28/20 00:15 37.0 C 78 18 114/57 L 92 05/27/20 20:01 37.1 C 89 16 104/57 L 94 05/27/20 18:00 97 H 17 116/67 96 05/27/20 17:00 79 16 101/61 97 05/27/20 16:00 82 18 115/63 94 05/27/20 15:30 74 18 107/63 95 05/27/20 14:40 36.8 C 79 15 121/60 93 05/27/20 14:30 75 15 130/58 L 97 05/27/20 14:20 75 15 131/63 97 05/27/20 14:10 68 12 140/59 L 97 05/27/20 14:00 71 20 159/78 H 94 05/27/20 13:53 36.1 C L 75 17 169/75 H 97 Pain Intensity Left Shoulder: Pain Intensity: 5 Notes Mental Status: alert / awake / arousable and participated in evaluation Nausea / Vomiting: adequately controlled Pain: adequately controlled Airway Patency, RR, SpO2: stable & adequate BP & HR: stable & adequate Hydration State: stable & adequate Anesthetic Complications: no major complications apparent and Pt Satisfied with anesthetic care
[2020-05-28] MEDS: amLODIPine BESYLATE 5 MG TAB PO SCH (21:04)
[2020-05-28] MEDS: SENNA 8.6 MG TAB PO SCH (21:04)
[2020-05-28] MEDS: hydroCHLOROthiazide 25 MG TAB PO SCH (21:05)
[2020-05-28] MEDS: lisinopril 40 MG TAB PO SCH (21:05)
[2020-05-28] MEDS: ISOSORBIDE MONO EXTENDED REL 60 MG TABCR PO SCH (21:05)
[2020-05-29] MEDS: oxyCODONE HCL IR 5 MG TAB (IMMEDIATE RELEASE) PO PRN (04:29)
[2020-05-29] MEDS: ACETAMINOPHEN 500 MG TAB PO SCH (05:05)
[2020-05-29 06:35] LABS: Basophils # (auto) 0.01 K/uL (0-0.2); Basophils % (auto) 0.1 %; Eosinophils # (auto) 0.23 K/uL (0-0.5); Eosinophils % (auto) 2.5 %; Hematocrit (blood only) 32.8 % (37-47); Hemoglobin 10.6 g/dL (12.0-16.0); Immature Granulocytes # (auto) 0.02 K/uL (0.00-0.02); Immature Granulocytes % (auto) 0.2 %; Lymphocytes # (auto) 1.57 K/uL (1.2-3.4); Lymphocytes % (auto) 16.8 %; Mean Corpuscular Hemoglobin 30.7 pg (25-34); Mean Corpuscular Hgb Conc 32.3 g/dL (32-36); Mean Corpuscular Volume 95.1 fL (80-100); Mean Platelet Volume 10.5 fL (7.4-10.4); Monocytes # (auto) 0.89 K/uL (0.11-0.59); Monocytes % (auto) 9.5 %; Neutrophils # (auto) 6.64 K/uL (1.4-6.5); Neutrophils % (auto) 70.9 %; Platelet Count 224 K/uL (130-400); RDW Coefficient of Variation 13.4 % (11.5-14.5); RDW Standard Deviation 46.3 fL (36.4-46.3); Red Blood Count 3.45 M/uL (4.2-5.4); White Blood Count 9.36 K/uL (4.8-10.8)
[2020-05-29 07:01] LABS: BUN Creatinine Ratio 24.6 (10-20); Calcium 9.2 mg/dl (8.5-10.1); Creatinine Clr Calc Pharmacy 38.1 ml/min; Est GFR (African American) 60.2; Est GFR (Non-African American) 51.9; Potassium 4.1 mmol/L (3.5-5.1)
[2020-05-29] MEDS: OMEPRAZOLE 20 MG CAPCR PO SCH (09:13)
[2020-05-29] MEDS: ASCORBIC ACID 500 MG TAB PO SCH (09:14)
[2020-05-29] MEDS: ASPIRIN 81 MG ECTAB PO SCH (09:14)
[2020-05-29] MEDS: VENLAFAXINE HCL 37.5 MG TAB PO SCH (09:15)
[2020-05-29] MEDS: VITAMIN B COMPLEX TAB PO SCH (09:15)
[2020-05-29] MEDS: MULTIVITAMIN TAB PO SCH (09:15)
[2020-05-29] MEDS: DOCUSATE SODIUM 100 MG CAP PO SCH (09:16)
[2020-05-29] MEDS: GABAPENTIN 400 MG CAP PO SCH (09:16)
[2020-05-29] MEDS: POLYETHYLENE (MIRALAX) 17 GM PACK PO SCH (09:17)
[2020-05-29] MEDS: METOPROLOL TARTRATE 50 MG TAB PO SCH (09:18)
--- NOTE | 2020-05-29 10:46 | Orthopedic Progress Note ---
Date of Service May 29, 2020 Assessment & Plan (1) Rotator cuff arthropathy: POD #2, Left reverse TSA, biceps tenodesis Limited PT/ OT DVT proph- ASA D/C planning- Home today w HEP, No formal PT. Admission and Anticipated Discharge Date Admission Date: May 27, 2020 Subjective POD #2, Feeling well. Denies SOB, CP, N/V, Dizziness. Pain controlled today. Physical Exam Physical Exam: Left shoulder dressings c/d/i, no drainage. Fingers mobile. Sling in tact. A&Ox3. VSS Results & Data ([facility]) Vital Signs (Past 12 Hours) Vital Signs Temp Pulse Pulse Resp BP Pulse Ox 05/29/20 08:04 37.2 C 78 18 136/76 92 05/28/20 23:35 67 16 95 05/28/20 23:13 37.2 C 67 16 110/64 92
--- NOTE | 2020-05-29 11:31 | Hospitalist Progress Note ---
Date of Service May 29, 2020 Assessment & Plan (1) Rotator cuff arthropathy: * POD#2 s/p LEFT reverse TSA with Dr. José. EBL 75cc. Pre-op h/h 12.8/39.3. Hemovac with 255cc output * PT/OT/pain management/DVT prophylaxis per primary service * h/h improved to 10.36/32.8 * Discharge planned for this afternoon per primary service (2) CAD (coronary artery disease): * s/p bare metal stent 1997 to LCx. Cardiac clearance by Yoshi Montgomery prior to procedure * Continue ASA 81mg, metoprolol, lisinopril, isosorbide, * Not on statin therapy -- reported allergy to atorvastatin "leg weakness" and stated issues with Crestor as well. Rec following up with pcp about additional agents vs newer PCSK9 (3) Hypertension: * BP stable, 136/76 * Continue lisinopril 40mg, metoprolol taetrate 50mg BID, HCTZ 12.5mg, amlodipin e 2.5mg * Continue to monitor (4) Prediabetes: * A1c 6.4 from 6.5 prior * BSG AC/HS * BSGs acceptable (5) History of ovarian cancer: * s/p chemotherapy 2003. subsequent hysterectomy/oophorectomy * Follows with Dr. Martin from Oncology in [place] (6) Depression: * Continue venlafaxine 75mg daily (7) Gastro-esophageal reflux disease without esophagitis: * Controlled. Hx Cowan's. Followed with Dr. Hernandez and gets routine EGDs * Continue omeprazole 40mg daily (8) Obstructive sleep apnea: * CPAP ordered (9) DVT prophylaxis: * ASA per primary service Thank you for allowing hospitalist team to participate in the care of Ms. Min. Hospitalist service will sign off Admission and Anticipated Discharge Date Admission Date: May 27, 2020 Supervising Physician Co-Signing Physician Notes PA Supervision Note: I did not personally see or examine the patient today, but I verified all beck points of LÁZARO James's assessment and plan with the following exceptions/additions: None Subjective Patient evaluated this morning. Feeling well. Pain controlled. Eating/drinking well. Passing gas but no BM. Plans on continuing bowel regimen at home. CM just in room and patient agreeable to having PT at home to help work on her gait/stability. Hemovac removed this morning with dressing change. No numbness/tingling, fever, chills, chest pain, shortness of breath, abdominal pain, nausea, dizziness or other concerns at this time. Plans for discharge later today. 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 Neurologic: patellar DTR's 2+ bilat, sensation intact and PERRL, EOMI, accommodation nl, no face palsy, no dysarthria Psychiatric: A+Ox3, euthymic affect Lymphatic: no cervical or axillary lymphadenopathy Results & Data Results & Data ([facility]) Vital Signs (Past 12 Hours) Vital Signs Temp Pulse Pulse Resp BP Pulse Ox 05/29/20 08:04 37.2 C 78 18 136/76 92 05/28/20 23:35 67 16 95 Laboratory Results 05/29/20 05/29/20 05/29/20 Range/Units 08:08 05:07 05:07 WBC 9.36 (4.8-10.8) K/uL RBC 3.45 L (4.2-5.4) M/uL Hgb 10.6 L (12.0-16.0) g/dL Hct 32.8 L (37-47) % MCV 95.1 (80-100) fL MCH 30.7 (25-34) pg MCHC 32.3 (32-36) g/dL RDW Std Deviation 46.3 (36.4-46.3) fL RDW Coeff of Elieser 13.4 (11.5-14.5) % Plt Count 224 (130-400) K/uL MPV 10.5 H (7.4-10.4) fL Immature Gran % (Auto) 0.2 % Neut % (Auto) 70.9 % Lymph % (Auto) 16.8 % [place] % (Auto) 9.5 % Eos % (Auto) 2.5 % Baso % (Auto) 0.1 % Neut # (Auto) 6.64 H (1.4-6.5) K/uL Lymph # (Auto) 1.57 (1.2-3.4) K/uL [place] # (Auto) 0.89 H (0.11-0.59) K/uL Eos # (Auto) 0.23 (0-0.5) K/uL Baso # (Auto) 0.01 (0-0.2) K/uL Immature Gran # (Auto) 0.02 (0.00-0.02) K/uL Sodium 139 (136-145) mmol/L Potassium 4.1 (3.5-5.1) mmol/L Chloride 105 (98-107) mmol/L Carbon Dioxide 29 (21-32) mmol/L Anion Gap 6.0 (3-11) BUN 25 H (7-18) mg/dl Creatinine 1.02 (0.6-1.2) mg/dl Est Cr Clr Drug Dosing 38.1 ml/min Est GFR ( Amer) 60.2 Est GFR (Non-Af Amer) 51.9 BUN/Creatinine Ratio 24.6 H (10-20) Glucose 134 H (70-99) mg/dl POC Glucose 126 H (70-99) mg/dl Calcium 9.2 (8.5-10.1) mg/dl 05/28/20 05/28/20 Range/Units 20:43 17:04 WBC (4.8-10.8) K/uL RBC (4.2-5.4) M/uL Hgb (12.0-16.0) g/dL Hct (37-47) % MCV (80-100) fL MCH (25-34) pg MCHC (32-36) g/dL RDW Std Deviation (36.4-46.3) fL RDW Coeff of Elieser (11.5-14.5) % Plt Count (130-400) K/uL MPV (7.4-10.4) fL Immature Gran % (Auto) % Neut % (Auto) % Lymph % (Auto) % [place] % (Auto) % Eos % (Auto) % Baso % (Auto) % Neut # (Auto) (1.4-6.5) K/uL Lymph # (Auto) (1.2-3.4) K/uL [place] # (Auto) (0.11-0.59) K/uL Eos # (Auto) (0-0.5) K/uL Baso # (Auto) (0-0.2) K/uL Immature Gran # (Auto) (0.00-0.02) K/uL Sodium (136-145) mmol/L Potassium (3.5-5.1) mmol/L Chloride (98-107) mmol/L Carbon Dioxide (21-32) mmol/L Anion Gap (3-11) BUN (7-18) mg/dl Creatinine (0.6-1.2) mg/dl Est Cr Clr Drug Dosing ml/min Est GFR ( Amer) Est GFR (Non-Af Amer) BUN/Creatinine Ratio (10-20) Glucose (70-99) mg/dl POC Glucose 134 H 141 H (70-99) mg/dl Calcium (8.5-10.1) mg/dl PG Care Time/CCT Total # of Minutes Spent Total Time Spent with Patient: Total time spent is greater than 50% in coordination of care (as documented) at patient's floor/unit and/or counseling patient: Coding Level of Care Code 05346 Subseq Hosp Care Lvl 2 Diagnoses Rotator cuff arthropathy M12.819 CAD (coronary artery disease) I25.10 Hypertension I10 Prediabetes R73.03 History of ovarian cancer Z85.43 Depression F32.9 Gastro-esophageal reflux disease without esophagitis K21.9 Obstructive sleep apnea G47.33 DVT prophylaxis Z29.9
--- NOTE | 2020-06-05 21:18 | Discharge Summary (DS) ---
HISTORY OF PRESENT ILLNESS: This is an 79-year-old female patient of Dr. José'sunday complaining of chronic shoulder pain, longstanding, now progressively getting worse. She has a history of chronic rotator cuff weakness. She has failed conservative treatment. An MRI has confirmed that she has insufficient rotator cuff. The patient elected to proceed with a left reverse total shoulder arthroplasty. PAST MEDICAL HISTORY: Angina, hypertension, hypercholesterolemia, sleep apnea with the use of CPAP, peripheral neuropathy, osteoarthritis, acid reflux, obesity and a history of ovarian cancer. POSTOPERATIVE COURSE: The patient underwent a left shoulder reverse total shoulder arthroplasty and biceps tenodesis on 05/27/2020. She was followed closely with medical consultation, DVT prophylaxis, physical therapy and pain control. The patient did very well postoperatively and she was discharged home on postoperative day #2. PHYSICAL EXAMINATION: On discharge, left shoulder incision was clean, dry and intact. [place] were intact. Skin edges were approximated well. There was no redness or drainage. She had good elbow, wrist and hand motion. Sling was intact. Neurologically and neurovascularly, she is intact in her left upper extremity. DIAGNOSES: Status post left reverse total shoulder arthroplasty and biceps tenodesis. She also has a history of angina, hypertension, hypercholesterolemia, sleep apnea, peripheral neuropathy, osteoarthritis, acid reflux, obesity and ovarian cancer. PLAN: The patient was discharged home with limited home exercise program. She will continue her preadmission medications with the addition of aspirin for DVT prophylaxis and pain medications as needed. She will follow up as an outpatient as scheduled.
== END 2020-05-29 13:20 | disposition home health service (06) | DRG 483 ==
LOC: ASU 09:49 → 3E 13:57

== ENCOUNTER 2024-10-18 09:23 | Observation (INO) ==
--- NOTE | 2024-09-19 13:01 | PAT Medication Instructions ---
Medication Instructions Date of Service September 19, 2024 Home Medications Medication Instructions Recorded nitroglycerin 0.4 mg sublingual 0.4 mg sublingual Q5M PRN chest 08/28/22 tablet pain #25 tabs omeprazole 40 mg capsule,delayed 40 mg PO QAM #90 caps 09/09/23 release metoprolol tartrate 50 mg tablet 50 mg PO BID #180 tabs 04/27/24 gabapentin 400 mg capsule 400 mg PO TID 90 days #270 caps 05/30/24 venlafaxine 75 mg tablet 75 mg PO BID #180 tabs 08/15/24 Medication List: aspirin 81 mg tablet,delayed release (Aspir-) 81 mg PO QDL nitroglycerin 0.4 mg sublingual tablet 0.4 mg sublingual Q5M PRN chest pain omeprazole 40 mg capsule,delayed release 40 mg PO QAM metoprolol tartrate 50 mg tablet 50 mg PO BID gabapentin 400 mg capsule 400 mg PO TID venlafaxine 75 mg tablet 75 mg PO BID alendronate 10 mg tablet 10 mg PO QPM amlodipine 10 mg tablet 10 mg PO QPM isosorbide mononitrate 60 mg tablet,extended release 24 hr 60 mg PO QPM levothyroxine 25 mcg tablet (Synthroid) 25 mcg PO QAM MEDICATION INSTRUCTIONS: Continue as directed nitroglycerin 0.4 mg sublingual tablet 0.4 mg sublingual Q5M PRN chest pain ASK your prescriber and surgeon aspirin 81 mg tablet,delayed release (Aspir-) 81 mg PO QDL alendronate 10 mg tablet 10 mg PO QPM Take morning of surgery With a small sip of water, OTHERWISE NOTHING TO EAT OR DRINK AFTER MIDNIGHT: levothyroxine 25 mcg tablet (Synthroid) 25 mcg PO QAM omeprazole 40 mg capsule,delayed release 40 mg PO QAM metoprolol tartrate 50 mg tablet 50 mg PO BID gabapentin 400 mg capsule 400 mg PO TID venlafaxine 75 mg tablet 75 mg PO BID Take evening before surgery metoprolol tartrate 50 mg tablet 50 mg PO BID gabapentin 400 mg capsule 400 mg PO TID venlafaxine 75 mg tablet 75 mg PO BID amlodipine 10 mg tablet 10 mg PO QPM isosorbide mononitrate 60 mg tablet,extended release 24 hr 60 mg PO QPM Other Notes If you have any questions please call us at [phone] or [phone] or [phone] or [phone]
--- NOTE | 2024-09-29 10:42 | Anesthesiology Consultation ---
Date of Service September 29, 2024 Assessment & Plan (1) Encounter for pre-operative examination: - awaiting cardiology ordered stress test and final [place] cardiology clearance. - cardiology pre-operative evaluation 09/29/24 [place]: "...CAD s/p Cx PCI: No angina. Bare metal stent placed in 1997. Patent stent in April of 2016. Continue aspirin 81 mg daily indefinitely. She did not tolerate statin therapy...Hypertension: Blood pressure is acceptable...Sclerotic aortic valve: No significant stenosis. DSE ordered today, and resting portion will reevaluate aortic valve. Preop: No angina but has a limited functional status with known CAD. Dobutamine stress echo ordered. Pending results of the stress test, patient is at an acceptable risk to proceed with orthopedic surgery. Recommend remaining on low dose aspirin daily throughout the perioperative period given prior intracoronary stenting..." Chart Review Chart Review: Pending: Refer to Additional Notes / Consult section and Patient seen in Pre Admission Testing Teaching & Discussion Pre-Anesthesia Teaching/Discussion Notes: Instructed NPO after midnight before surgery, except medications with 15 cc of water. Medication instructions provided according to the PAT guidelines. History Surgery Operation Date: 10/18/24 07:15 Proposed Procedures p Right Shoulder Reverse Total Shoulder Arthroplasty - Devonte José MD Height/Weight Height: 5 ft 0.5 in Weight: 67.1 kg Allergies Allergy/AdvReac Type Severity Reaction Status Date / Time chlorpheniramine Allergy Unknown Antihistamines Verified 09/29/24 13:01 reaction- "fogginess" diphenhydramine Allergy Unknown Antihistamines Verified 09/29/24 13:01 reaction- "fogginess" loratadine Allergy Unknown Antihistamines Verified 09/29/24 13:01 reaction- "fogginess" atorvastatin AdvReac Intermediate leg Verified 09/29/24 13:01 weakness fenofibrate AdvReac Intermediate leg Verified 09/29/24 13:01 weakness Medications Home Medications Medication Instructions Recorded Confirmed Last Taken aspirin 81 mg tablet,delayed 81 mg PO QDL 05/06/20 09/29/24 05/22/20 release (Aspir-) nitroglycerin 0.4 mg sublingual 0.4 mg sublingual Q5M PRN chest 08/28/22 09/29/24 Unknown tablet pain #25 tabs omeprazole 40 mg capsule,delayed 40 mg PO QAM #90 caps 09/09/23 09/29/24 Unknown release metoprolol tartrate 50 mg tablet 50 mg PO BID #180 tabs 04/27/24 09/29/24 Unknown gabapentin 400 mg capsule 400 mg PO TID 90 days #270 caps 05/30/24 09/29/24 Unknown venlafaxine 75 mg tablet 75 mg PO BID #180 tabs 08/15/24 09/29/24 Unknown alendronate 10 mg tablet 10 mg PO QPM 09/19/24 09/29/24 Unknown amlodipine 10 mg tablet 10 mg PO QPM #90 tabs 09/19/24 09/29/24 Unknown isosorbide mononitrate 60 mg 60 mg PO QPM 09/19/24 09/29/24 Unknown tablet,extended release 24 hr levothyroxine 25 mcg tablet 25 mcg PO QAM 09/19/24 09/29/24 Unknown (Synthroid) ezetimibe 10 mg tablet (Zetia) 10 mg PO DAILY #30 tabs 09/29/24 09/29/24 Unknown Past Medical History Medical History (Updated 09/29/24 @ 10:40 by Ester Valdovinos PA-C) Anxiety Aortic valve sclerosis Echo 01/2022: "No significant valvular abnormalities" Cwoan esophagus CAD (coronary artery disease) stent x1 (1998) Follows with [facility] [place] CKD (chronic kidney disease) Depression GERD (gastroesophageal reflux disease) controlled, stable per pt History of skin cancer Hx of ovarian cancer s/p chemo (2003), subsequent oophorectomy Hx of renal calculi Hyperlipidemia Hypertension controlled, stable per pt Hypothyroidism Neuropathy Osteoarthritis Poor balance Sleep apnea Does not use CPAP machine Type 2 diabetes mellitus Diet controlled, no current meds Patient denies h/o stroke, seizures, heart failure, blood clots/DVTs or blood transfusions. Exercise / Class Metabolic Activity III < 4 Walking/Shop/Light housework (denies chest discomfort or shortness of breath with usual activities) Past Family History Family History (Updated 09/19/24 @ 11:14 by Angelia Bowman RN) Brother Cancer Hypertension Father Cancer Mother Diabetes Coronary heart disease Myocardial infarction Hypertension Sister Stroke Other No family history of adverse response to anesthesia Denies family history of Ovarian cancer Prostate cancer Breast cancer Colorectal cancer Past Surgical History Surgical History (Updated 09/26/24 @ 09:36 by Keri Lopez) H/O colonoscopy H/O dilation and curettage H/O left cataract extraction History of appendectomy History of bunionectomy left History of carpal tunnel release right History of esophagogastroduodenoscopy (EGD) History of foot surgery left - hammer toes History of hip replacement partial hip replacement (Left) 09/2023 (d/t fall and fracture) History of left shoulder replacement Left reverse TSA (05/27/2020): Grade 3 view, MAC, ETT 7.0 + regional at [facility] History of tooth extraction Hx of salpingo-oophorectomy, bilateral S/P cardiac cath 1998- stent x1 2015 ([place]) - no stents S/P coronary artery stent placement (1998) x1 stent S/P hysterectomy Past Anesthesia History No Hx of Anesthesia Complications and No Family Hx of Anesthesia Complications History of PONV No Hx of PONV and No Hx of Motion Sickness Social History Smoking Status: Never smoker Do You Dip or Chew Tobacco: No Hx Alcohol Use: Yes Alcohol type: wine alcohol intake frequency: holidays/special occasions only Hx Substance Use: No substance use type: does not use Review of Systems Patient denies chest pain, shortness of breath, dyspnea on exertion, fever, chil ls, cough, wheezing, or palpitations. Physical Exam Vital Signs Vitals BP 140/65 P 71 TEMP 98.7 SP02 94% on RA RESP 18 Physical Patient resting comfortably in chair in no acute distress, alert and oriented, responding appropriately throughout visit Full cervical extension range of motion without pain TMD 3.5 finger breadths Mallampati Score 2 Dentition: several loose lower teeth, several caps/crowns and partial, denies chipped teeth, implants Lungs: normal respiratory effort. Good air movement, clear throughout to auscultation, no adventitious breath sounds Cardiac: regular rate and rhythm, no murmurs noted Carotid arteries: negative bruit bilat Lab Results Anesthesia Preop Results Results Anesthesia Widget: WBC 6.55 K/ul (4.8-10.8) 09/29/24 Hgb 11.8 g/dl (12.0-16.0) L 09/29/24 Hct 37.8 % (37.0-47.0) 09/29/24 Plt 301 K/uL (130-400) 09/29/24 Na 141 mmol/L (136-145) 09/29/24 K 3.9 mmol/L (3.5-5.1) 09/29/24 Cl 105 mmol/L (98-107) 09/29/24 CO2 30 mmol/L (21-32) 09/29/24 BUN 26 mg/dl (6-23) H 09/29/24 Creat 0.87 mg/dl (0.6-1.2) 09/29/24 Glucose Level 84 mg/dl (70-99(Fasting)) 09/29/24 PT 10.8 Seconds (9.0-12.0) 09/29/24 PTT 24 Seconds (21-31) 09/29/24 INR 1.0 (0.9-1.1) 09/29/24 HA1c 6.5 % (4.5-5.6) H 09/29/24 Urine Color Dark Yellow 09/29/24 Urine Appearance Clear (Clear) 09/29/24 Urine pH 5.0 (4.5-7.5) 09/29/24 Urine Specific Cowdrey 1.024 (1.000-1.030) 09/29/24 Urine Protein Negative (Negative) 09/29/24 Urine Glucose (UA) Negative (Negative) 09/29/24 Urine Ketones Trace (Negative) H 09/29/24 Urine Blood Negative (Negative) 09/29/24 Urine Nitrite Negative (Negative) 09/29/24 Urine Bilirubin Negative (Negative) 09/29/24 Urine Urobilinogen Negative (Negative) 09/29/24 Urine Leukocyte Esterase 2+ (Negative) H 09/29/24 Urine WBC (Auto) 21-50 /hpf (0-5) H 09/29/24 Urine RBC (Auto) 0-2 /hpf (0-2) 09/29/24 Urine Hyaline Casts (Auto) 0-2 /lpf (0-2) 09/29/24 Urine Epithelial Cells (Auto) 3-5 /hpf (0-2) H 09/29/24 Urine Bacteria (Auto) 4+ (None Seen) H 09/29/24 Blood Type A Positive 09/29/24 Antibody Screen NEGATIVE 09/29/24 Testing Laboratory Results Surgeon's office made aware of abnormal UA. Electrocardiogram Date: 09/29/24 NSR, rate 69 bpm Left axis deviation Moderate voltage criteria for LVH, may be normal variant Chest X-Ray Date: 09/29/24 1. A stable elevated right hemidiaphragm is seen. 2. No definite consolidation or pleural effusion is seen. 3. Mild degenerative changes again noted in the thoracic spine. 4. A newly seen adequately aligned left shoulder prosthesis with no radiological evidence of hardware failure. 5. Otherwise, no gross interval changes are seen. 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
--- NOTE | 2024-10-09 16:50 | History & Physical Report ---
Date of Service October 09, 2024 Assessment & Plan (1) Osteoarthritis of right glenohumeral joint: Plan: Severe end-stage glenohumeral osteoarthritis with bone loss and rotator cuff tendinopathy with shoulder weakness. Best option at her age is to proceed with right shoulder reversed total shoulder arthroplasty and patient did have preoperative CT scan blueprint templating for custom guide for augmented baseplate. (2) Tendinopathy of right rotator cuff: History of Present Illness Chief Complaint: Chronic progressive right shoulder pain Primary Care Provider: Roseanne Hernadez, 84-year-old female with severe right shoulder pain related to osteoarthritis. Patient denies headaches, sweats, fevers, chills, double vision, blurred vision, cough, sore throat, dysphagia, chest pain, sob, wheezing, n/v/d/c, numbness, tingling, fatigue, urinary symptoms. ROS positive for sleep apnea and anxiety and shortness of breath with walking up a hill or running and acid reflux. History of ovarian cancer. Allergies Allergy/AdvReac Type Severity Reaction Status Date / Time chlorpheniramine Allergy Unknown Antihistamines Verified 09/29/24 13:01 reaction- "fogginess" diphenhydramine Allergy Unknown Antihistamines Verified 09/29/24 13:01 reaction- "fogginess" loratadine Allergy Unknown Antihistamines Verified 09/29/24 13:01 reaction- "fogginess" atorvastatin AdvReac Intermediate leg Verified 09/29/24 13:01 weakness fenofibrate AdvReac Intermediate leg Verified 09/29/24 13:01 weakness Home Medications Medication Instructions Recorded Confirmed Type aspirin 81 mg tablet,delayed 81 mg PO QDL 05/06/20 10/02/24 History release (Aspir-) nitroglycerin 0.4 mg sublingual 0.4 mg sublingual Q5M PRN chest 08/28/22 10/02/24 Rx tablet pain #25 tabs omeprazole 40 mg capsule,delayed 40 mg PO QAM #90 caps 09/09/23 10/02/24 Rx release metoprolol tartrate 50 mg tablet 50 mg PO BID #180 tabs 04/27/24 10/02/24 Rx gabapentin 400 mg capsule 400 mg PO TID 90 days #270 caps 05/30/24 10/02/24 Rx venlafaxine 75 mg tablet 75 mg PO BID #180 tabs 08/15/24 10/02/24 Rx alendronate 10 mg tablet 10 mg PO QPM 09/19/24 10/02/24 History amlodipine 10 mg tablet 10 mg PO QPM #90 tabs 09/19/24 10/02/24 Rx isosorbide mononitrate 60 mg 60 mg PO QPM 09/19/24 10/02/24 History tablet,extended release 24 hr levothyroxine 25 mcg tablet 25 mcg PO QAM 09/19/24 10/02/24 History (Synthroid) ezetimibe 10 mg tablet (Zetia) 10 mg PO DAILY #30 tabs 09/29/24 10/02/24 Rx mecobalamin (vitamin B12) 1,000 1,000 mcg PO DAILY 10/02/24 10/02/24 History mcg chewable tablet Past Med/Surg History Problem List (Updated 10/09/24 @ 16:49 by Devonte José MD) Tendinopathy of right rotator cuff Osteoarthritis of right glenohumeral joint Diabetes mellitus Hypothyroidism CKD (chronic kidney disease), stage III Toe deformity Obstructive sleep apnea Encounter for pre-operative examination Adenomatous colon polyp Cowan's esophagus Carpal tunnel syndrome left Depression Gait abnormality poor balance Lumbar canal stenosis Neuropathy, autonomic Peripheral neuropathy Ulnar neuropathy of both upper extremities Hypertension Dyslipidemia CAD (coronary artery disease) Urinary incontinence Medical History GERD (gastroesophageal reflux disease) controlled, stable per pt Hx of renal calculi Type 2 diabetes mellitus Diet controlled, no current meds Poor balance Hyperlipidemia Hypertension controlled, stable per pt CAD (coronary artery disease) stent x1 (1998) Follows with [facility] [place] cardiology History of skin cancer Hx of ovarian cancer s/p chemo (2003), subsequent oophorectomy Neuropathy Depression Cowan esophagus Aortic valve sclerosis Echo 01/2022: "No significant valvular abnormalities" CKD (chronic kidney disease) Hypothyroidism Osteoarthritis Anxiety Sleep apnea Does not use CPAP machine Surgical History History of hip replacement partial hip replacement (Left) 09/2023 (d/t fall and fracture) S/P coronary artery stent placement (1998) x1 stent H/O left cataract extraction History of left shoulder replacement Left reverse TSA (05/27/2020): Grade 3 view, MAC, ETT 7.0 + regional at [facility] History of appendectomy History of tooth extraction History of foot surgery left - hammer toes History of esophagogastroduodenoscopy (EGD) History of carpal tunnel release right Hx of salpingo-oophorectomy, bilateral S/P hysterectomy History of bunionectomy left H/O dilation and curettage H/O colonoscopy S/P cardiac cath 1998- stent x1 2016 ([place]) - no stents Family History Brother Cancer Hypertension Father Cancer Mother Diabetes Coronary heart disease Myocardial infarction Hypertension Sister Stroke Other No family history of adverse response to anesthesia Denies family history of Ovarian cancer Prostate cancer Breast cancer Colorectal cancer Social History Smoking Status: Never smoker Second Hand Exposure: No; Do You Dip or Chew Tobacco: No; Hx Alcohol Use: Yes Alcohol type: wine Alcohol type Comment: Mixed drink Alcohol Intake Frequency: Monthly or Less Alcohol Intake Frequency Comment: very rare Hx Substance Use: No Preferred Language: Sami Communication Ability: Effective Visual Impairment: Limited Hearing Ability: Normal 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 Beliefs That Will Affect Care: [facility] marital status: Current Living Situation: Spouse current occupational status: retired How many Children do You have: 2 How many Children do You have Comment: 2 alive- 1 Feels Safe at Home: Yes Childhood Exposure to Second-Hand Smoke: Yes Diet: regular caffeine: Yes during the past year weight has: remained stable Dental Care, Regularly: No Physical Activity Frequency: Does not Exercise Seatbelt Use: always Sunscreen Use: Yes Do you think of yourself as: straight/heterosexual Gender Identity: Female Assistive Devices: Cane, Glasses and Walker Review of Systems All systems reviewed & are unremarkable except as noted in HPI & below Physical Exam Constitutional: WD/WN, vitals as above Respiratory: normal respiratory effort; no respiratory distress Cardiovascular: Rate/Rhythm: regular rate and regular rhythm Musculoskeletal: Right shoulder with active and passive painful range of motion with active flexion only to 30 degrees with passive flexion to 120 degrees with active abduction to 30 degrees and passive abduction to 70 degrees with internal rotation to L5 and external rotation 15 degrees and internal rotation 20 degrees with very limited range of motion of that right shoulder. Left shoulder has better range of motion at 160 degrees of flexion and 140 degrees of abduction. The neurological exams intact. Her strength is limited in the right arm and shoulder area but has a functional deltoid. She does appear to have subdeltoid effusion bursitis and fluid collection anteriorly and laterally. Skin: no rashes, warm and dry Neurologic: normal touch/pain/proprioception Psychiatric: A+Ox3, euthymic affect Results & Data Diagnostic Findings X-rays right shoulder demonstrate severe end-stage osteoarthritis glenohumeral joint with bone loss and a B2 glenoid.
[~2024-10-18 09:23] MED LIST changes: +BUPIVACAINE 0.5 % 5 MG/1 ML PF 10ML VIAL ONE; -LR 15ML/HR IV SCH; -ROPIVACAINE 0.5% 5 MG/ML 30 ML VIAL ONE
[2024-10-18] MEDS ORDERED: ATROPINE SULFATE 0.1 MG/ML 10ML SYR IV PRN (09:43)
[2024-10-18] MEDS ORDERED: HYDROmorphone INJ 1 MG/ML SYRINGE IV PRN (09:43)
[2024-10-18] MEDS ORDERED: fentaNYL citrate PF 100 MCG/2 ML VIAL IV PRN (09:43)
[2024-10-18] MEDS ORDERED: ePHEDrine sulfate 50 MG/ML AMP IV PRN (09:43)
--- NOTE | 2024-10-18 09:44 | Anesthesiology Consultation ---
Date of Service October 18, 2024 Assessment & Plan Chart Review Chart Review: Acceptable Risk for Surgery Consults Requested none ASA ASA3 Proposed Anesthesia Anesthesia Type: General Regional Regional Laterality: Right Site: Interscalene History Surgery Operation Date: 10/18/24 11:15 Proposed Procedures p Right Reverse Total Shoulder Arthroplasty - Devonte José MD Height/Weight Height: 5 ft 0.5 in Weight: 67.1 kg Allergies Allergy/AdvReac Type Severity Reaction Status Date / Time chlorpheniramine Allergy Unknown Antihistamines Verified 10/18/24 09:52 reaction- "fogginess" diphenhydramine Allergy Unknown Antihistamines Verified 10/18/24 09:52 reaction- "fogginess" loratadine Allergy Unknown Antihistamines Verified 10/18/24 09:52 reaction- "fogginess" atorvastatin AdvReac Intermediate leg Verified 10/18/24 09:52 weakness fenofibrate AdvReac Intermediate leg Verified 10/18/24 09:52 weakness Medications Home Medications Medication Instructions Recorded Confirmed Last Taken aspirin 81 mg tablet,delayed 81 mg PO QDL 05/06/20 10/18/24 10/17/24 12:00 release (Aspir-) nitroglycerin 0.4 mg sublingual 0.4 mg sublingual Q5M PRN chest 08/28/22 Unknown tablet pain #25 tabs omeprazole 40 mg capsule,delayed 40 mg PO QAM #90 caps 09/09/23 10/18/24 10/17/24 12:00 release metoprolol tartrate 50 mg tablet 50 mg PO BID #180 tabs 04/27/24 10/18/24 10/17/24 22:30 gabapentin 400 mg capsule 400 mg PO TID 90 days #270 caps 05/30/24 10/18/24 10/17/24 22:30 venlafaxine 75 mg tablet 75 mg PO BID #180 tabs 08/15/24 10/18/24 10/17/24 22:30 alendronate 10 mg tablet 10 mg PO QPM 09/19/24 10/18/24 10/17/24 12:00 amlodipine 10 mg tablet 10 mg PO QPM #90 tabs 09/19/24 10/18/24 10/17/24 22:30 isosorbide mononitrate 60 mg 60 mg PO QPM 09/19/24 10/18/24 10/17/24 22:30 tablet,extended release 24 hr levothyroxine 25 mcg tablet 25 mcg PO QAM 09/19/24 10/18/24 10/17/24 09:30 (Synthroid) ezetimibe 10 mg tablet (Zetia) 10 mg PO DAILY #30 tabs 09/29/24 10/18/24 10/17/24 09:30 mecobalamin (vitamin B12) 1,000 1,000 mcg PO DAILY 10/02/24 10/18/24 10/16/24 mcg chewable tablet Active Medications Generic Name Dose Route Start Last Admin Trade Name Enioq PRN Reason Stop Dose Admin Acetaminophen 1,000 mg 10/18/24 06:00 10/18/24 10:28 Acetaminophen 500 Mg Tab PO 10/18/24 18:00 1,000 mg PREOP MARYANN Administration Celecoxib 200 mg 10/18/24 06:00 10/18/24 10:28 Celebrex 200 Mg Cap PO 10/18/24 18:00 200 mg PREOP MARYANN Administration Dexamethasone Sodium Phosphate 10 mg 10/18/24 06:00 10/18/24 10:28 DexamethasonePf 10 Mg/Ml Vial IV 10/18/24 18:00 10 mg PREOP MARYANN Administration Famotidine 20 mg 10/18/24 06:00 10/18/24 10:28 Famotidine 20 Mg Tab PO 10/18/24 18:00 20 mg PREOP MARYANN Administration Gabapentin 300 mg 10/18/24 06:00 10/18/24 10:28 Gabapentin 300 Mg Cap PO 10/18/24 18:00 300 mg PREOP MARYANN Administration Lactated Ringer's 1,000 mls @ 60 mls/hr 10/18/24 06:00 10/18/24 10:26 Lr IV 10/18/24 22:39 Not Given .[id number] MARYANN Lactated Ringer's 1,000 mls @ 15 mls/hr 10/18/24 06:00 10/18/24 10:27 Lr IV 10/19/24 05:59 15 mls/hr .Q24H MARYANN Administration Metoclopramide HCl 10 mg 10/18/24 06:00 10/18/24 10:28 Metoclopramide Hcl 10 Mg Tablet PO 10/18/24 18:00 10 mg PREOP MARYANN Administration NPO Last Intake of Solids Comment: Greater then 8hrs Past Medical History Medical History GERD (gastroesophageal reflux disease) controlled, stable per pt Hx of renal calculi Type 2 diabetes mellitus Diet controlled, no current meds Poor balance Hyperlipidemia Hypertension controlled, stable per pt CAD (coronary artery disease) stent x1 (1998) Follows with [facility] cardiology History of skin cancer Hx of ovarian cancer s/p chemo (2003), subsequent oophorectomy Neuropathy Depression Cowan esophagus Aortic valve sclerosis Echo 01/2022: "No significant valvular abnormalities" CKD (chronic kidney disease) Hypothyroidism Osteoarthritis Anxiety Sleep apnea Does not use CPAP machine Exercise / Class Metabolic Activity III < 4 Walking/Shop/Light housework Past Family History Family History Brother Cancer Hypertension Father Cancer Mother Diabetes Coronary heart disease Myocardial infarction Hypertension Sister Stroke Other No family history of adverse response to anesthesia Denies family history of Ovarian cancer Prostate cancer Breast cancer Colorectal cancer Past Surgical History Surgical History History of hip replacement partial hip replacement (Left) 09/2023 (d/t fall and fracture) S/P coronary artery stent placement (1998) x1 stent H/O left cataract extraction History of left shoulder replacement Left reverse TSA (05/27/2020): Grade 3 view, MAC, ETT 7.0 + regional at [facility] History of appendectomy History of tooth extraction History of foot surgery left - hammer toes History of esophagogastroduodenoscopy (EGD) History of carpal tunnel release right Hx of salpingo-oophorectomy, bilateral S/P hysterectomy History of bunionectomy left H/O dilation and curettage H/O colonoscopy S/P cardiac cath 1998- stent x1 2015 ([place] [facility]) - no stents Past Anesthesia History No Hx of Anesthesia Complications History of PONV No Hx of PONV and No Hx of Motion Sickness Social History Smoking Status: Never smoker Do You Dip or Chew Tobacco: No Hx Alcohol Use: Yes Alcohol type: other alcohol intake frequency: holidays/special occasions only Hx Substance Use: No substance use type: does not use Physical Exam Vital Signs Last Vital Signs Temp 36.9 C 10/18/24 09:50 Pulse 86 10/18/24 09:50 Resp 20 10/18/24 09:50 BP 156/81 H 10/18/24 09:50 Pulse Ox 97 10/18/24 09:50 O2 Del Method Room Air 10/18/24 09:50 Constitutional no acute distress ENMT Mouth: + dentures (partial out ); no dentition abnormality Thyromental Distance: > or= 3.5 Finger Breadths Mallampati Class: II Neck normal visual inspection Respiratory normal respiratory effort Auscultation: lungs clear to auscultation bilaterally Cardiovascular Rate/Rhythm: regular rate and regular rhythm Neurologic moves all extremities Psychiatric Orientation: alert and oriented x 3 Testing Laboratory Results 10/18/24 09:34 POC Glucose 120 H Electrocardiogram Date: 09/29/24 NSR, rate 69 bpm Left axis deviation Moderate voltage criteria for LVH, may be normal variant Chest X-Ray Date: 09/29/24 1. A stable elevated right hemidiaphragm is seen. 2. No definite consolidation or pleural effusion is seen. 3. Mild degenerative changes again noted in the thoracic spine. 4. A newly seen adequately aligned left shoulder prosthesis with no radiological evidence of hardware failure. 5. Otherwise, no gross interval changes are seen. 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
--- NOTE | 2024-10-18 09:47 | History & Physical Bridge Note ---
Date of Service October 18, 2024 History & Physical Bridge Note I have examined the patient, reviewed the History & Physical and in the interval since the performance of the History & Physical I have noted the following changes of clinical significance: no changes noted
[2024-10-18] MEDS ORDERED: ONDANSETRON INJ 2 MG/ML 2 ML VIAL ONE (10:20)
[2024-10-18] MEDS ORDERED: ROCURONIUM BROMIDE 10 MG/ML 5 ML VIAL IV ONE ×3 (10:20→13:59)
[2024-10-18] MEDS ORDERED: PROPOFOL IV EMULSION 10 MG/ML 20 ML VIAL IV ONE (10:20)
[2024-10-18] MEDS ORDERED: fentaNYL citrate PF 100 MCG/2 ML VIAL ONE (10:20)
[2024-10-18] MEDS ORDERED: DEXAMETHASONE SOD INJ 4 MG/ML VIAL ONE ×2 (10:20→12:52)
[2024-10-18] MEDS: LR 60ML/HR IV SCH (10:26)
[2024-10-18] MEDS: LACTATED RINGER'S 1,000 ML IV SCH (10:27)
[2024-10-18] MEDS: CeleBREX 200 MG CAP PO SCH (10:28)
[2024-10-18] MEDS: METOCLOPRAMIDE HCL 10 MG TABLET PO SCH (10:28)
[2024-10-18] MEDS: GABAPENTIN 300 MG CAP PO SCH (10:28)
[2024-10-18] MEDS: FAMOTIDINE 20 MG TAB PO SCH (10:28)
[2024-10-18] MEDS: dexAMETHasone**PF** 10 MG/ML VIAL IV SCH (10:28)
[2024-10-18] MEDS: ACETAMINOPHEN 500 MG TAB PO SCH ×2 (10:28→22:50)
[2024-10-18] MEDS: TRANEXAMIC ACID 1,000 MG **IV Pre-op IV SCH (11:13)
[2024-10-18] MEDS: ceFAZolin 2000MG 2,000 MG/15 ML SYR IV SCH ×2 (11:50→22:34)
[2024-10-18] MEDS ORDERED: PHENYLEPHRINE HCL 10 MG/ML VIAL ONE (12:44)
[2024-10-18] MEDS ORDERED: GLYCOPYRROLATE 0.2 MG/ML VIAL ONE ×2 (12:48→14:12)
[2024-10-18] MEDS ORDERED: ePHEDrine sulfate 50 MG/5 ML SYR ONE (13:09)
[2024-10-18] MEDS: TRANEXAMIC ACID 1,000 MG **IV Intra-op IV SCH (14:05)
[2024-10-18] MEDS ORDERED: NEOSTIGMINE METHYLSULFATE 1 MG/ML 10ML VIAL ONE (14:12)
--- NOTE | 2024-10-18 15:03 | Operative Report ---
Post Operative Report Pre & Post Diagnosis Operation Date: 10/18/24 11:15 Pre-Op Diagnosis: Right Shoulder glenohumeral osteoarthritis with glenoid bone erosion, rotator cuff tendinopathy, subacromial and subdeltoid bursitis. Post-Op Diagnosis: Right Shoulder glenohumeral osteoarthritis with glenoid bone erosion , rotator cuff tendinopathy high-grade partial tearing rotator cuff with subacromial and subdeltoid bursitis with dislocation biceps tendon and biceps tendinopathy. Inflammatory synovitis. I identified the patient and participated in the time-out.: Yes Procedure Operation Date: 10/18/24 11:15 Actual Procedures p Right Reverse Total Shoulder Arthroplasty with augmented full wedge baseplate, biceps tenodesis, subacromial bursectomy.- Devonte José MD Surgeon Devonte José MD Outside Salesman Felipe SESAY Estimated Blood Loss 50 Findings Consistent with Post-Op Diagnosis Specimens Humeral head Drains None Anesthesia Type General Regional Complications none Disposition Disposition: Recovery Room Indications 84-year-old female with chronic progressive pain and weakness in her right shoulder. She has limited active elevation of her arm only about 30 degrees. There is [id number] crepitation. She has clinical large subdeltoid bursa effusion. Radiographs demonstrate she has [id number]-[id number] in the glenohumeral joint with posterior glenoid bone loss with substantial posterior superior bone loss. Description of Procedure The patient was taken to the operating room and anesthetized under regional block and general anesthetic. The patient was positioned on the operating table in a 30 beach chair position with a towel roll under the medial border of the right scapula. The arm was draped free to be able to manipulate the shoulder as needed. The right upper extremity was prepped and draped in usual sterile fashion. Exam demonstrated 130 degrees passive flexion 30 degrees external rotation 70 degrees abduction [id number] crepitation. Subdeltoid swelling consistent with bursitis. An anterior deltopectoral approach was performed. A longitudinal incision was made in the deltopectoral interval. The skin was incised sharply. Subcutaneous flaps were elevated off the fascia. The cephalic vein was dissected out and retracted lateral with the deltoid. The clavipectoral fascia was divided at the lateral margin of the conjoined tendon and extended up to the CA ligament. The following findings were noted: There was a very large fluid collection consistent with bursitis in the subacromial space and extending down over the greater tuberosity anterior and lateral proximal humerus. This was carefully dissected out from underneath the deltoid and off of the rotator cuff and excised. The rotator cuff had very thin superior subscapularis tendon with dislocated biceps tendon anteriorly with partial tearing of the subscapularis with tendinopathy. The supraspinatus had some splitting and tendinopathy likely some vertical full-thickness tears extending into the joint. Majority the tendinopathy was supraspinatus but there was also undersurface tearing of the infraspinatus noted later in the procedure.. The upper centimeter of the pectoralis was released for inferior exposure. The biceps tendon findings demonstrated marked tenosynovitis around the distal biceps at the level of the pectoralis tendon but approximately the tendon widened and was dislocated anteriorly into a large undersurface partial tear of the subscapularis upper third. the biceps tendon was tenodesed to the pectoralis tendon with #2 FiberWire. The proximal biceps was resected. The subscapularis tendon was taken down off the lesser tuberosity using a subperiosteal dissection. A #1 Vicryl traction suture was placed into the free end of the subscapularis tendon and capsule. The subscapular muscle fibers were split longitudinally at the level of the circumflex vessels. The circumflex vessels were identified and tied off with silk ties and divided laterally. A Kitner elevator was used to free up the inferior fibers of the subscapularis off of the capsule. The axillary nerve was identified with a tug test and protected with a blunt Alek retractor between the nerve and the capsule. The subscapularis tendon was then taken down off of the lesser tuberosity subperiosteally and subperiosteal dissection was performed along the neck of the humerus as the arm is gradually actually rotated exposing the humeral head. Retractors were readjusted and the inferior osteophytes were all resected using an artist chisel and rongeur. Humeral head was completely eburnated bone with circumferential osteophytes and some tendinopathy partial tearing of the infraspinatus noted from the intra-articular view.. A Hyman elevator was used to assist in releasing the capsule of the neck of the humerus. The capsule was divided with Rodriguez scissors down to the glenoid released off the anterior glenoid and the rotator interval was released to meet the capsular release and a 360 release of the subscapularis was accomplished. A Fukuda retractor was placed into the joint retracting the humeral head posterior. Glenoid findings demonstrated eburnation with 80% eburnation. And bone loss with the angle of the maximum bone loss at the 10 o'clock position. The labrum remnants and remainder of the superior biceps tendon was resected. an anterior-inferior and posterior inferior capsular release were performed with electrocautery and a Hyman elevator on bone with the axillary nerve protected inferiorly by the retractor. Attention was then taken to the humeral preparation. The cutting guide was placed into the humeral head. It was positioned at 20 of retroversion. Oscillating saw was used to resect the humeral head giving the cut above the level of the posterior rotator cuff insertion site. The humerus was then prepared for the stem. I used the ascend flex stem from [employer]. The sizing broaches were used followed by trial broaches up to a size 3B Long which had the appropriate fit and fill. The appropriate sized cut protector was placed. The humerus was then retracted posterior to the glenoid. The glenoid was sized for a 25 mm full wedge 15 degree Tornier perform baseplate based on CT preoperative templating with custom guide being produced preop.. The custom guide for the baseplate was positioned as per the model and the central guidepin was placed with good fixation.. The central starting reamer was used. The 15 degree angled reamer was utilized placing the posterior maximum angle at the 10 o'clock position approximately. This was followed by the reamer for the central boss . The depth gauge was used to measure for the central screw. This was measured at 35 mm. The performed 25 mm full wedge 15 degree angled baseplate with a 6.5 x 35 mm center screw was screwed into position. The base plate was transfixed with the compression screw at the 10 o'clock position and locking screws in the other 3 locations the fan reamer was used and due to the lateral offset made no contact to bone. 39 mm glenoid sphere was chosen per preoperative CT plan.. After irrigation the 39 mm standard glenoid sphere was impacted onto the baseplate and the screw was tightened. Attention was taken back to the humerus. The cut protector was removed and the +0 high offset humeral tray trial was assembled to the trial stem rotated appropriately to get bony coverage and then screwed in position. A trial reduction was performed. The soft tissue tension was too tight so we had to remove the trial recut the proximal humerus another 3 mm reset the trial and do another trial reduction. A +6/39 trial insert demonstrated good stability and no shuck. The trials were removed. 3 drill holes are made into the harder bone in the bicipital groove area and 3 #5 FiberWire sutures were placed transosseously. The canal was irrigated with pulsatile saline solution. The final component was assembled. The final component was 3B Long ascend flex stem assembled to the +0 high offset tray with a 39 mm/+6 reversed polyethylene insert. This was then impacted into the humerus with a tight press-fit. It was reduced to the glenoid sphere. Stability was verified. Subscapularis was repaired with the #5 FiberWire sutures using Colin-Errol suture technique. Lateral row soft tissue repair was performed with #2 FiberWire [id number] sutures. The pectoralis was repaired with #2 FiberWire [id number]-[id number] sutures reinforcing the biceps tendon tenodesis. The arm was taken through a range of motion which demonstrated 140 degrees forward flexion 90 degrees abduction 60 degrees external rotation without tension on the repair. The implant was stable through the range of motion tested. A 3-minute Betadine soak was performed. Then the wound was copiously irrigated with pulsatile saline solution. The deltopectoral interval was closed with [id number] #1 Vicryl sutures. The subcutaneous tissues were closed with 2-0 Vicryl sutures. The skin was closed with surgical harvey. A Silverlon sterile dressing was applied and a shoulder immobilizer. Felipe SESAY my physician assignment desk assistant assisted in the procedure to the entire procedure including patient positioning arm positioning prepping and draping soft tissue retraction instrument management suture management and performed the subcutaneous and skin closure and will participate in the postoperative care of the patient. I attest to the content of the Intraoperative Record and any orders documented therein. Any exceptions are noted below.
--- NOTE | 2024-10-18 15:35 | XRay Report ---
XR shoulder RT min 2V routine CLINICAL HISTORY: Post shoulder surgery COMPARISON: None pertinent FINDINGS: 2 views of the right shoulder demonstrate a arthroplasty with satisfactory positioning and alignment of the prosthetic components. Postoperative changes are noted in the soft tissues. IMPRESSION: Postop arthroplasty as described ACT 112: Negative or not required by law. Electronically signed by: Allie Delgado M.D. 10/18/2024 3:33 PM
[2024-10-18] MEDS ORDERED: ALUMINUM/MAGNESIUM SUSP 30 ML UDC PO PRN (16:17)
[2024-10-18] MEDS ORDERED: MAGNESIUM HYDROXIDE SUSP 30 ML UDC PO PRN (16:17)
[2024-10-18] MEDS ORDERED: METOCLOPRAMIDE HCL INJ 5 MG/ML 2 ML VIAL IV PRN (16:17)
[2024-10-18] MEDS ORDERED: NALOXONE HCL 0.4 MG/1 ML VIAL/CARP IV PRN (16:17)
[2024-10-18] MEDS ORDERED: KETOROLAC TROMETHAMINE 15 MG/ML VIAL IV PRN (16:17)
[2024-10-18] MEDS ORDERED: bisacodyL 10 MG SUPP PR PRN (16:17)
[2024-10-18] MEDS ORDERED: HYDROmorphone INJ 0.5 MG/0.5 ML SYR IV PRN (16:17)
[2024-10-18] MEDS ORDERED: NITROGLYCERIN SL 0.4 MG/TAB TAB SL PRN (16:17)
[2024-10-18] MEDS ORDERED: oxyCODONE HCL IR 5 MG TAB (IMMEDIATE RELEASE) PO PRN (16:17)
[2024-10-18] MEDS ORDERED: ONDANSETRON INJ 2 MG/ML 2 ML VIAL IV PRN (16:17)
[2024-10-18] MEDS: BUPIVACAINE LIPOSOME 1.3% 133 MG/10 ML VIAL ONE (16:22)
--- NOTE | 2024-10-18 16:57 | Anesthesiology Progress Note ---
Date of Service October 18, 2024 Anesthesia Post Procedure Vital Signs Vital Signs: Temp Pulse Pulse Resp BP Pulse Ox O2 Del Method 10/18/24 16:41 36.5 C 82 18 150/81 H 92 Room Air 10/18/24 16:05 36.7 C 77 18 126/75 93 Room Air 10/18/24 15:45 77 22 159/89 H 97 Nasal Cannula 10/18/24 15:35 36.6 C 73 19 160/72 H 95 Nasal Cannula 10/18/24 15:25 74 18 156/86 H 95 Nasal Cannula 10/18/24 15:15 72 16 161/68 H 100 Oxymask 10/18/24 15:05 78 21 177/86 H 99 Oxymask 10/18/24 14:56 36.3 C L 81 15 185/87 H 100 Oxymask 10/18/24 09:50 36.9 C 86 20 156/81 H 97 Room Air O2 Flow Rate 10/18/24 16:41 10/18/24 16:05 10/18/24 15:45 2 10/18/24 15:35 2 10/18/24 15:25 2 10/18/24 15:15 4 10/18/24 15:05 8 10/18/24 14:56 10 10/18/24 09:50 Pain Intensity Right Shoulder: Pain Intensity: 5 Transfer of Care Handoff Completed per policy Notes Mental Status: alert / awake / arousable Patient Amnestic to Procedure: Yes Nausea / Vomiting: adequately controlled Pain: adequately controlled Airway Patency, RR, SpO2: stable & adequate BP & HR: stable & adequate Hydration State: stable & adequate Anesthetic Complications: no major complications apparent and Pt Satisfied with anesthetic care
[2024-10-18] MEDS: ALENDRONATE SODIUM 10 MG TAB PO SCH (22:34)
[2024-10-18] MEDS: VENLAFAXINE HCL 37.5 MG TAB PO SCH (22:34)
[2024-10-18] MEDS: SENNA 8.6 MG TAB PO SCH (22:34)
[2024-10-18] MEDS: DOCUSATE SODIUM 100 MG CAP PO SCH (22:34)
[2024-10-18] MEDS: ASPIRIN 81 MG ECTAB PO SCH (22:34)
[2024-10-18] MEDS: GABAPENTIN 400 MG CAP PO SCH (22:34)
[2024-10-18] MEDS: TRANEXAMIC ACID / 0.7% NACL 1,000 MG/100 ML BAG IV SCH (22:34)
[2024-10-18] MEDS: amLODIPine BESYLATE 5 MG TAB PO SCH (22:35)
[2024-10-18] MEDS: ISOSORBIDE MONO EXTENDED REL 60 MG TABCR PO SCH (22:35)
[2024-10-18] MEDS: METOPROLOL TARTRATE 50 MG TAB PO SCH (22:35)
[2024-10-19] MEDS: LEVOTHYROXINE SODIUM 25 MCG TABLET PO SCH (06:30)
[2024-10-19 06:37] LABS: Basophils # (auto) 0.02 K/uL (0.00-0.20); Basophils % (auto) 0.2 %; Eosinophils # (auto) 0.05 K/uL (0.00-0.50); Eosinophils % (auto) 0.5 %; Hematocrit (blood only) 32.4 % (37.0-47.0); Hemoglobin 10.3 g/dl (12.0-16.0); Immature Granulocytes # (auto) 0.04 K/uL (0.01-0.20); Immature Granulocytes % (auto) 0.4 %; Lymphocytes # (auto) 1.16 K/uL (1.20-3.40); Lymphocytes % (auto) 11.7 %; Mean Corpuscular Hemoglobin 28.1 pg (25.0-34.0); Mean Corpuscular Hgb Conc 31.8 g/dL (32.0-36.0); Mean Corpuscular Volume 88.5 fL (80.0-100.0); Mean Platelet Volume 9.9 fL (9.4-12.4); Monocytes # (auto) 1.11 K/uL (0.11-0.59); Monocytes % (auto) 11.2 %; Neutrophils # (auto) 7.51 K/uL (1.40-6.50); Platelet Count 256 K/uL (130-400); RDW Coefficient of Variation 13.7 % (11.5-14.5); RDW Standard Deviation 44.3 fL (36.4-46.3); Red Blood Count 3.66 M/uL (4.20-5.40); White Blood Count 9.89 K/ul (4.8-10.8)
[2024-10-19 06:57] LABS: BUN Creatinine Ratio 19.6 (10-20); Calcium 8.8 mg/dl (8.6-10.3); Creatinine Clr Calc Pharmacy 34.1 ml/min; Potassium 4.2 mmol/L (3.5-5.1)
--- NOTE | 2024-10-19 08:11 | Orthopedic Progress Note ---
Date of Service October 19, 2024 Assessment & Plan (1) Osteoarthritis of right glenohumeral joint: Plan: Severe end-stage glenohumeral osteoarthritis with bone loss and rotator cuff tendinopathy with shoulder weakness. Best option at her age is to proceed with right shoulder reversed total shoulder arthroplasty and patient did have preoperative CT scan blueprint templating for custom guide for augmented baseplate. Postop day 1 reverse total shoulder replacement augmented glenoid biceps tenodesis. Discussed activity precautions and activities allowed at this point in time. Plan is that she is going do some home exercises for couple weeks hold off on formal physical therapy and decide on physical therapy after 2 weeks. She can be discharged home today after instructed by OT PT for appropriate home exercise program. (2) Tendinopathy of right rotator cuff: Admission and Anticipated Discharge Date Admission Date: October 18, 2024 Subjective No chest pain shortness of breath patient feels well. No significant pain at all. Physical Exam Musculoskeletal: Shoulder normally located with dressing dry and intact no drainage. Distal circulation normal motor function returning but still under effects of block. Still some numbness from block. Results & Data Vital Signs (Past 12 Hours) Vital Signs Temp Pulse Resp BP Pulse Ox O2 Del Method 10/19/24 04:36 36.4 C L 68 16 124/65 92 Room Air 10/19/24 00:00 36.7 C 79 18 132/71 94 Room Air Diagnostic Findings Well aligned reverse shoulder replacement with augmented baseplate
[2024-10-19 08:27] VITALS: BP 167/103; RESP 20; TEMP 97.9; O2SAT 93
[2024-10-19] MEDS: dexAMETHasone 10 MG in SYRINGE 0 ML IV SCH (08:44)
[2024-10-19] MEDS: EZETIMIBE 10 MG TAB PO SCH (08:44)
[2024-10-19] MEDS: CYANOCOBALAMIN (B-12) 500 MCG TABLET PO SCH (08:44)
[2024-10-19] MEDS: PANTOprazole 40 MG TAB PO SCH (08:45)
[2024-10-19] MEDS: MULTIVITAMIN TAB PO SCH (08:45)
[2024-10-19 09:56] VITALS: PULSE 77
== END 2024-10-19 11:40 | disposition home or self-care (01) ==
LOC: ASU 09:23 → 3E 09:23